=== PATIENT | female | born 1935 | race Caucasian/White ===

== ENCOUNTER 2017-12-01 10:19 | Inpatient (IN) ==
[2017-12-01] MEDS ORDERED: Metoprolol Tartrate 25 MG Tablet PO ONE (11:06)
[2017-12-01] MEDS ORDERED: Chlorhexidine Gluconate 2% 1 Pack (2 Cloths) TOPICAL ONE (11:06)
[2017-12-01] MEDS ORDERED: Mupirocin 2% Nasal Oint Topical Syringe EACH NARE SCH (11:15)
[2017-12-01] MEDS ORDERED: Sod Chloride 0.9% Inj 1,000 ML IV.CONT SCH ×2 (11:15→16:00)
[2017-12-01] MEDS ORDERED: Aspirin 325 MG Tablet PO SCH (11:15)
[2017-12-01] MEDS ORDERED: Chlorhexidine Gluconate 2% 1 Pack (2 Cloths) TOPICAL SCH (11:15)
[2017-12-01] MEDS ORDERED: ceFAZolin 2 GM Premix Inj 2 GM/50 ML PIGGYBACK IV.SIG SCH (11:15)
[2017-12-01] MEDS ORDERED: Sodium Chlor 0.9% Inj 500 ML IV.SIG SCH (12:00)
[2017-12-01] MEDS ORDERED: Heparin 10,000 UNITS/10 ML Vial (for IV use) ONE (12:32)
[2017-12-01] MEDS ORDERED: Protamine Sulfate Inj 50 MG/5 ML Vial ONE (12:32)
--- NOTE | 2017-12-01 13:01 | P.HPCA ---
History of Present Illness Service: Cardiology Primary Care Physician: Crista Brennan MD Chief Complaint: Severe aortic valve stenosis History of Present Illness: This is an 81-year-old female who follows in the outpatient office with Dr. Sarmiento and has severe aortic valve stenosis. Patient has had complaints of progressive dyspnea on exertion. Patient underwent evaluation which consisted of a cardiac catheterization by Dr. Demarco which showed mild nonobstructive coronary disease. Patient was evaluated by cardiothoracic surgery and felt to be intermediate risk for surgical aortic valve replacement. After lengthy discussion the patient has elected to proceed forward with transcatheter aortic valve replacement. Procedure was originally scheduled with Dr. Demarco, who is unavailable. I was asked to feel him to proceed forward with the scheduled elective transcatheter valve replacement today. - Diagnosis (1) Severe aortic stenosis Inpatient Certification: I certify that the inpatient services were ordered in accordance with Medicare regulations governing the order. This includes certification that hospital inpatient services are reasonable and necessary and in the case of services not specified as inpatient-only under 42 CFR 419.22(n), that they are appropriately provided as inpatient services in accordance to with the 2-midnight benchmark under 43 CFR 412.3(e) Estimated Total Length of Stay (Days): 2 Plans for Post Hospital Care: Home Review of Systems All other systems reviewed negative except as stated in HPI [facility] - History History Provided By: Patient - Medical History Medical History: Medical History (Last Updated 10/14/17 @ 12:19 by Scarlet Haney RN) Aortic stenosis Congestive heart failure Hypertension Mitral and aortic insufficiency - Tobacco History Tobacco Use In Past 30 Days: Yes (1 CIGARETTE PER DAY) Smoking Status: Current every day smoker Tobacco Type: Cigarettes - Alcohol History How Often Do You Have a Drink Containing Alcohol: 4 or more times a week Medications and Allergies Active Medications: Active Medications Aspirin (Aspirin) 325 mg PO DIGITAL COORDINATOR [facility] Stop: 12/04/17 11:02 Last Admin: 12/01/17 11:29 Dose: 325 mg Chlorhexidine Gluconate (Chlorhexidine 2% Cloth) 3 pack TOPICAL DIGITAL COORDINATOR [facility] Stop: 12/04/17 11:02 Last Admin: 12/01/17 11:29 Dose: Not Given Cefazolin Sodium/Dextrose (Ancef 2 Gm Premix Inj) 2 gm in 50 mls @ 100 mls/hr IV.SIG DIGITAL COORDINATOR [facility] Stop: 12/04/17 11:14 Sodium Chloride (Ns Inj) 1,000 mls @ 125 mls/hr IV.CONT .Q8H [facility] Lactated Ringer's (Lr 1000 Ml Inj) 1,000 mls @ 30 mls/hr IV.SIG .Q24H [facility] Stop: 12/02/17 11:14 Sodium Chloride (Ns Inj) 500 mls @ 30 mls/hr IV.SIG .Q10H [facility] Mupirocin (Bactroban 2% Nasal Oint) 1 applicatio EACH NARE DIGITAL COORDINATOR [facility] Stop: 12/04/17 11:02 Last Admin: 12/01/17 11:29 Dose: Not Given Povidone Iodine (Betadine 5% Antisepsis Kit) 1 applicatio TOPICAL DIGITAL COORDINATOR [facility] Stop: 12/04/17 11:02 Last Admin: 12/01/17 11:29 Dose: Not Given Allergies Allergy/AdvReac Type Severity Reaction Status Date / Time No Known Allergies Allergy Verified 12/01/17 11:35 Home Medications Medication Instructions Recorded Confirmed Type alendronate 70 mg PO QWEEK 10/14/17 12/01/17 History atorvastatin 80 mg PO DAILY 10/14/17 12/01/17 History furosemide 20 mg PO DAILY 10/14/17 12/01/17 History losartan 50 mg PO DAILY 10/14/17 12/01/17 History sertraline 100 mg PO DAILY 10/14/17 12/01/17 History metoprolol tartrate 25 mg PO DAILY 12/01/17 12/01/17 History Exam Vital signs: Vital Signs 12/01/17 11:31 Temperature 98.2 F Pulse Rate 75 Respiratory Rate 16 Blood Pressure 206/94 H Pulse Oximetry 97 Intake & Output 11/30/17 12/01/17 12/01/17 18:59 06:59 18:59 Weight 53.3 kg Other: Weight On Admission 53.3 kg - Constitutional no acute distress - Routine Neck Exam Absent: JVD - Routine Respiratory Exam Present: CTA bilaterally - Routine Cardiovascular Exam Present: RRR, murmur - Routine Abdominal Exam Present: soft, normoactive bowel sounds - Routine Neurological Exam Present: oriented X3, CN II-XII intact. Absent: sensory deficit, motor deficit Results Intake and Output 11/30/17 12/01/17 12/01/17 22:59 06:59 14:59 Other: Weight 53.3 kg Weight On Admission 53.3 kg Patient Weight 12/02/17 06:59 Weight 53.3 kg Caprini VTE Risk Assessment Caprini VTE Risk Assessment: No/Low Risk (score <= 1) Caprini Risk Assessment Model: Point Value = 1 Point Value = 2 Point Value = 3 Point Value = 5 Age 41-60 Minor surgery BMI > 25 kg/m2 Swollen legs Varicose veins or History of unexplained or recurrent spontaneous Oral contraceptives or hormone replacement Sepsis (< 1 month) Serious lung disease, including pneumonia (< 1 month) Abnormal pulmonary function Acute myocardial infarction Congestive heart failure (< 1 month) History of inflammatory bowel disease Medical patient at bed rest Age 61-74 Arthroscopic surgery Major open surgery (> 45 min) Laparoscopic surgery (> 45 min) Malignancy Confined to bed (> 72 hours) Immobilizing plaster cast Central venous access Age >= 75 History of VTE Family history of VTE Factor V Leiden Prothrombin [id number] Lupus anticoagulant Anticardiolipin antibodies Elevated serum homocysteine Heparin-induced thrombocytopenia Other congenital or acquired thrombophilia Stroke (< 1 month) Elective arthroplasty Hip, pelvis, or leg fracture Acute spinal cord injury (< 1 month) Prophylaxis Regimen: Total Risk Factor Score Risk Level Prophylaxis Regimen 0-1 Low Early ambulation 2 Moderate Order ONE of the following: *Sequential Compression Device (SCD) *Heparin 5000 units SQ BID 3-4 Higher Order ONE of the following medications: *Heparin 5000 units SQ TID *Enoxaparin/Lovenox 40 mg SQ daily (WT < 150 kg, CrCl > 30 mL/min) *Enoxaparin/Lovenox 30 mg SQ daily (WT < 150 kg, CrCl > 10-29 mL/min) *Enoxaparin/Lovenox 30 mg SQ BID (WT < 150 kg, CrCl > 30 mL/min) AND/OR *Sequential Compression Device (SCD) 5 or more Highest Order ONE of the following medications: *Heparin 5000 units SQ TID (Preferred with Epidurals) *Enoxaparin/Lovenox 40 mg SQ daily (WT < 150 kg, CrCl > 30 mL/min) *Enoxaparin/Lovenox 30 mg SQ daily (WT < 150 kg, CrCl > 10-29 mL/min) *Enoxaparin/Lovenox 30 mg SQ BID (WT < 150 kg, CrCl > 30 mL/min) AND *Sequential Compression Device (SCD) Assessment and Plan - Assessment (1) Severe aortic stenosis Code(s): I35.0 - Nonrheumatic aortic (valve) stenosis Status: Acute - Plan This 81-year-old female with severe symptomatic aortic valve stenosis now here for scheduled aortic valve replacement via transcatheter approach. Preoperative workup: STS score 5.4% BMI 25.1 [place] [employer] functional class III symptoms 2/4 frailty score Electrocardiogram dated October 14, 2017 shows normal sinus rhythm with left ventricular hypertrophy Pulmonary function testing from October 14, 2017 shows FEV1 of 0.86 consistent with moderate obstructive ventilatory defect. Echocardiogram September 27, 2017 shows peak jet velocity 5.19 m/s, mean gradient 62 mmHg, aortic valve area 0.44 cm, ejection fraction 55-60%, mild aortic/ mitral/tricuspid valve insufficiency Cardiac catheterization October 14, 2017 shows mild nonobstructive coronary disease Computed tomographic analysis from October 14, 2017 shows a short annulus diameter 19.6 mm, long annulus diameter 23.7 mm, annular area 371.8 mm, sinus of Valsalva 27.1 mm, sinotubular junction 24.8 mm, left coronary height 12.8 mm , right coronary height 12.8 mm, minimal luminal diameter on the right 5.9 mm, left 6.3 mm We will plan for a Decker Marine S3 23 mm bioprosthetic transcatheter aortic valve replacement. Risk benefits alternatives were discussed with the patient. patient is agreeable to proceed.
[2017-12-01] MEDS ORDERED: Iohexol 300 MG/ML 50 ML Vial (for Rad Diag) IVCONTRAST ONE ×3 (14:23→14:24)
[2017-12-01] MEDS ORDERED: Morphine Sulfate Inj 2 MG/ML Vial IV.PUSH PRN ×2 (14:31→15:28)
[2017-12-01] MEDS ORDERED: Acetaminophen 325 MG Tablet PO PRN (14:31)
--- NOTE | 2017-12-01 14:37 | P.PCN ---
Date of procedure: 12/01/17 Pre-op diagnosis: severe aortic stenosis Procedure: Procedure: Transesophageal Echocardiography Diagnosis: severe aortic stenosis Indications: perioperative planning for transcatheter aortic valve Consent: Obtained Anesthesia: General endotracheal anesthesia Description of the Procedure: The patient was sedated and mechanically ventilated. The echo probe was inserted easily and without resistance. At the conclusion of the procedure, the echo probe was removed. Please see detailed echocardiogram report for formal findings. Preliminary Findings (not confirmed): pre-procedure: 1) Grossly preserved biventricular function 2) severe aortic stenosis 3) moderate aortic regurgitation 4) moderate mitral regurgitation 5) mild tricuspid regurgitation 6) evidence of left atrial hypertension 7) no evidence of intra-atrial shunting by color flow Doppler 8) no pericardial effusion Post-procedure: 1) s/p successful placement of transcatheter aortic valve 2) no evidence of bioprosthetic valve stenosis 3) no perivalvular leak 4) no wall motion abnormalities 5) no pericardial effusion The patient tolerated the procedure well with no hemodynamic instability. There were no immediate complications noted. There was minimal EBL. I personally performed the procedure.
--- NOTE | 2017-12-01 14:48 | P.PCN ---
Date of procedure: 12/01/17 Pre-op diagnosis: Severe aortic valve stenosis Procedure: lung gun operator: Maxi Dick MD Primary Surgeon: Shonda Huang MD Procedure performed: 1. Fluoroscopy with interpretation 2. Left heart catheterization 3. Ascending aortography 4. Transesophageal echocardiogram 5. Transvenous temporary pacemaker placement 6. Transcatheter aortic valve replacement Methods: Risks, benefits, and alternatives were discussed with the patient. Patient understood and consented to the procedure. Patient was brought into the catheterization lab and placed on the catheterization table. Right groin and left groin prepped and draped in sterile fashion. Left groin was anesthetized with 2% lidocaine. Left common femoral artery was cannulated and a 5 Tongan 11 cm sheath was placed without difficulty. Left femoral vein was accessed and a 5 Tongan 11 cm sheath was placed without difficulty. Right common femoral artery was cannulated with a micropuncture wire and micropuncture sheath placed. Digital subtraction angiography confirmed intraluminal and appropriate placement. A 8 Tongan 11 cm sheath was placed followed by 2 Perclose devices in a pre-close manner. The Decker 14 Tongan sheath was then advanced with dilator to the level of the thoracic descending aorta. Left heart catheterization: A 6 Tongan AL-1 catheter was advanced to the ascending aorta 0.035 inch 260 cm straight tip Amplatz Super Stiff wire was then navigated across the aortic valve with some difficulty. The AL-1 catheter was navigated into the left ventricle and the wire removed. A 0.035 inch 260 cm standard J-wire was then advanced to the left ventricular apex and the AL-1 catheter removed. A 5 Tongan angled pigtail catheter was advanced to the left ventricular apex and the wire removed. A 0.035 inch 260 cm Confida wire was navigated to the distal left ventricular apex and the pigtail catheter removed. Transvenous temporary pacemaker placement: Access was obtained in the right internal jugular vein a 5 Tongan balloontipped temporary transvenous pacemaker was advanced to the right ventricular apex under fluoroscopic guidance. Appropriate capture and pacing was confirmed. Transesophageal echocardiogram: Please see separate report Ascending aortography: 5 Tongan angled pigtail catheter was advanced into the right coronary cusp. Angiography revealed all 3 cusps in a parallel view. Transcatheter aortic valve replacement: A 23 mm Decker Marine S3 valve was then prepped and advanced through the sheath to the level of the thoracic aorta. The balloon was pulled back into the stent. The aortic valve stent graft was then advanced over the arch and across the aortic valve with some difficulty. Appropriate placement was confirmed and the device was slowly deployed under rapid pacing. Repeat transesophageal echocardiogram confirmed appropriate placement without significant aortic insufficiency. The sheath was then re-removed and 2 Perclose devices deployed with good hemostasis. Left common femoral artery and vein were both closed with 5 Tongan Vascade devices with good hemostasis. Conclusions: 1. Successful trans-catheter aortic valve replacement with a 23 mm Decker Marine S3 bioprosthetic valve Plan: Patient will agree monitor closely for any postprocedural complications. We will initiate patient on Plavix therapy. Will consult electrophysiology for evaluation. We will obtain a limited to the echocardiogram to evaluate the valve. Dr. Demarco to follow tomorrow.
[2017-12-01] MEDS ORDERED: Clevidipine Inj 25 MG/50 ML VIAL ONE (14:53)
--- NOTE | 2017-12-01 15:01 | P.CONCC ---
History of Present Illness Service: Critical Care Medicine Consult date: 12/01/17 Requesting Physician: Eben Dick Reason for Consult: perioperative management of medical comorbidities Primary Care Provider: Crista Brennan MD Chief Complaint: Severe aortic valve stenosis History of Present Illness: This is an 81-year-old female with a history of severe aortic stenosis who presents for transcatheter aortic valve replacement. She underwent uncomplicated procedure. She arrives to the CVICU and exudative in stable condition. She is arousing from anesthesia and a complete review of systems is unobtainable. Limited review systems is negative for chest pain, shortness of breath, sore throat, nausea, vomiting, headache. Review of Systems unobtainable due to mental status (Arousing from anesthesia) PMFSH - History History Provided By: Patient - Medical History Medical History: Medical History (Last Updated 10/14/17 @ 12:19 by Scarlet Haney RN) Aortic stenosis Congestive heart failure Hypertension Mitral and aortic insufficiency - Tobacco History Tobacco Use In Past 30 Days: Yes (1 CIGARETTE PER DAY) Smoking Status: Current every day smoker Tobacco Type: Cigarettes - Alcohol History How Often Do You Have a Drink Containing Alcohol: 4 or more times a week Medications and Allergies Active Medications: Active Medications Aspirin (Aspirin) 325 mg PO FORM SETTER/DRIVER [facility] Stop: 12/04/17 11:02 Last Admin: 12/01/17 11:29 Dose: 325 mg Chlorhexidine Gluconate (Chlorhexidine 2% Cloth) 3 pack TOPICAL FORM SETTER/DRIVER [facility] Stop: 12/04/17 11:02 Last Admin: 12/01/17 11:29 Dose: Not Given Cefazolin Sodium/Dextrose (Ancef 2 Gm Premix Inj) 2 gm in 50 mls @ 100 mls/hr IV.SIG FORM SETTER/DRIVER [facility] Stop: 12/04/17 11:14 Last Infusion: 12/01/17 13:40 Dose: Infused Sodium Chloride (Ns Inj) 1,000 mls @ 125 mls/hr IV.CONT .Q8H [facility] Lactated Ringer's (Lr 1000 Ml Inj) 1,000 mls @ 30 mls/hr IV.SIG .Q24H [facility] Stop: 12/02/17 11:14 Sodium Chloride (Ns Inj) 500 mls @ 30 mls/hr IV.SIG .Q10H [facility] Iohexol (Omnipaque 300 Inj (Rad Diag)) 50 ml IVCONTRAST ONCE ONE Stop: 12/01/17 14:25 Iohexol (Omnipaque 300 Inj (Rad Diag)) 30 ml IVCONTRAST ONCE ONE Stop: 12/01/17 14:24 Mupirocin (Bactroban 2% Nasal Oint) 1 applicatio EACH NARE FORM SETTER/DRIVER [facility] Stop: 12/04/17 11:02 Last Admin: 12/01/17 11:29 Dose: Not Given Povidone Iodine (Betadine 5% Antisepsis Kit) 1 applicatio TOPICAL FORM SETTER/DRIVER [facility] Stop: 12/04/17 11:02 Last Admin: 12/01/17 11:29 Dose: Not Given Allergies Allergy/AdvReac Type Severity Reaction Status Date / Time No Known Allergies Allergy Verified 12/01/17 11:35 Home Medications Medication Instructions Recorded Confirmed Type alendronate 70 mg PO QWEEK 10/14/17 12/01/17 History atorvastatin 80 mg PO DAILY 10/14/17 12/01/17 History furosemide 20 mg PO DAILY 10/14/17 12/01/17 History losartan 50 mg PO DAILY 10/14/17 12/01/17 History sertraline 100 mg PO DAILY 10/14/17 12/01/17 History metoprolol tartrate 25 mg PO DAILY 12/01/17 12/01/17 History Physical Exam Vital signs: Vital Signs 12/01/17 11:31 Temperature 36.8 C Pulse Rate 75 Respiratory Rate 16 Blood Pressure 206/94 H Pulse Oximetry 97 Intake & Output 11/30/17 12/01/17 12/01/17 18:59 06:59 18:59 Intake Total 50 / 50 Balance 50 / 50 Weight 53.3 kg Intake: IV 50 / 50 Ancef 2 GM Premix Inj 2 gm In 50 / 50 50 ml @ 100 mls/hr IV.SIG FORM SETTER/DRIVER [facility] Rx#:[id number] Other: Weight On Admission 53.3 kg Narrative: GENERAL: Frail elderly female lying in bed, arousing from anesthesia HEENT: Normocephalic. Atraumatic. Pupils equal, round, reactive, conjugate. Mucous membranes are moist NECK: Trachea is midline. There is no JVD. right IJ introducer sheath with transvenous pacer in place, site is clean and dry, dressing intact. CHEST: unlabored. equal chest rise. nc o2. CARDIOVASCULAR: normal rate, regular rhythm. Transvenous pacer is set VVI at a backup rate of 50. not currently paced. ABDOMEN: Soft, nontender, nondistended. No guarding. MUSCULOSKELETAL: Pulses 2+. No peripheral edema. bilateral groin sites are clean and dry, no evidence of hematoma, dressing intact. distal LE pulses are Dopplerable. NEUROLOGICAL: RASS -2. Arousing from anesthesia. follows commands. moves all extremities. no focal deficits. - Urinary Catheter Management Indwelling Temp Sensing Catheter Cath placed during this visit: yes Reason for continuing: Hourly intake/output Insertion date: 12/01/17 Insertion time: 13:19 Assessment and Plan - Assessment and Plan Plan: Assessment: 81-year-old female postop day 0 status post transcatheter aortic valve replacement. Admit ICU for close monitoring. S/p TAVR today via groin access - anticoagulation per veterans services specialist - mivf - close uop monitoring - frequent neurovascular checks - frequent groin checks - OOB after flat time Hypertension - goal sbp < 180 - add back antihypertensives as needed - currently on low-dose clevidipine. Congestive Heart Failure secondary to valvulopathy - mivf today - may need diuresis beginning after POD 1 Hyperlipidemia - restart home statin advance diet after flat time SCDs AM CBC, BMP Critical care medicine will continue to follow while patient remains in the CVICU.
[2017-12-01] MEDS ORDERED: Iohexol 350 MG/ML 100 ML Vial (for Cath Lab) IVCONTRAST ONE (15:07)
[2017-12-01] MEDS ORDERED: fentaNYL Citrate Inj 100 MCG/2 ML Ampul ONE (15:10)
--- NOTE | 2017-12-01 15:11 | P.OP ---
- Preoperative Diagnosis (1) Diastolic heart failure (2) Severe aortic stenosis Postoperative Diagnosis: same Date of procedure: 12/01/17 Procedure: Transcatheter aortic valve replacement with a 23 Marine 3 tissue valve Percutaneous bilateral femoral artery access with Perclose closure on the right. Percutaneous left femoral venous access Aortography Fluoroscopy Implants: 23 Marine 3 tissue valve Anesthesia: GETA Surgeon: Shonda Huang MD Co-surgeon - Minor Pathology: none sent Operation and Findings: The risks, benefits, complications, treatment options, and expected outcomes were discussed with the patient. The possibilities of reaction to medication, pulmonary aspiration, perforation of viscus, bleeding, recurrent infection, the need for additional procedures, failure to diagnose a condition, and creating a complication requiring transfusion or operation were discussed with the patient. The patient concurred with the proposed plan, giving informed consent. The site of surgery properly noted/marked. The patient was taken to hybrid operating room, identified as Beckie Anthony and the procedure verified as Transcatheter Aortic Valve Replacement. A Time Out was held and the above information confirmed. Standard monitoring lines and Valentin catheter were placed. General anesthesia was induced. The patient was prepped and draped in a sterile fashion. Initially, left femoral arterial and venous access was acquired using a Seldinger percutaneous technique. The details of this procedure were dictated under separate note by cardiology. Once a pigtail was positioned in the aortic annulus and a temporary transvenous pacemaker wire was placed in the right ventricular apex and tested, the right femoral artery was accessed using a needle followed by a guidewire under fluoroscopic guidance. The patient was heparinized and 2 Perclose devices deployed for later closure. Serial dilators were used to dilate the right femoral artery to 14 Pakistani caliber. The Decker sheath was then inserted up to the distal abdominal aorta. Arch aortography was performed to define the implant view. The valve was crossed in the usual manner. A 23 Decker Marine 3 transcatheter aortic valve was then positioned in the annulus and deployed with the patient being paced at 180 beats per minute. Following deployment, the valve apparatus was withdrawn and arch aortography and VANI were performed to assess the valve. The valve had no significant perivalvular leaks. Gradients were then measured and the sheath was removed. Perclose sutures were secured with good hemostasis. Protamine was administered. Sterile dressings were placed. At the end of the operation, all sponge, instruments, and needle counts were correct. The patient was transferred to the CVICU in stable condition. Findings: 23 S3 valve deployed with no PVL. Complications: none
[2017-12-01] MEDS ORDERED: Clevidipine Inj 25 MG/50 ML VIAL IV.CONT PRN (15:12)
--- NOTE | 2017-12-01 15:40 | ECG ---
Date Performed: 12/01/2017 Time Performed: 10:55:04 PTAGE: 81 years EKG: Sinus rhythm . Lateral ST-T changes are nonspecific Borderline ECG No significant change from prior electrocardiog roberto. PREVIOUS TRACING : 10/14/2017 11.30 DOCTOR: Magdiel Mayer Interpretating Date/Time 12/01/2017 15:39:29
--- NOTE | 2017-12-01 16:08 | ECHRPT ---
Indication: CONCLUSIONS Normal left ventricular size. Mild concentric left ventricular hypertrophy. The left ventricular systolic function is normal with an estimated ejection fraction in the range of 60-65%. The left atrial size is mildly dilated. Mild thickening of the mitral valve leaflets. Mild mitral valve regurgitation. Trileaflet aortic valve. Aortic valve sclerosis is present. Diffuse calcification of the aortic valve. Mild aortic valve regurgitation. Severe aortic valve stenosis. james-operative transcatheter aortic valve replacement. Mild thickening of the tricuspid valve leaflets. There is mild tricuspid valve regurgitation. BP: / HR: Rhythm: MEASUREMENTS (Male / Female) Normal Values Technical Quality: 2D ECHO LVOT Diameter 1.6 cm DOPPLER AV Peak Velocity 354.0 cm/s AI Pressure Half Time 350.0 ms AV Peak Gradient 50.1 mmHg LVOT Peak Velocity 103.6 cm/s AV Mean Gradient 36.5 mmHg LVOT Peak Gradient 4.3 mmHg AV Velocity Time Integral 96.7 cm LVOT Velocity Time Integr 27.5 cm AI Peak Velocity 210.0 cm/s AV Area Cont Eq vti 0.6 cm AI Peak Gradient 17.6 mmHg AV Area Cont Eq pk 0.6 cm Medications Complications Proc. Components FINDINGS LEFT VENTRICLE Normal left ventricular size. Mild concentric left ventricular hypertrophy. The left ventricular systolic function is normal with an estimated ejection fraction in the range of 60-65%. RIGHT VENTRICLE Normal right ventricular size and systolic function. LEFT ATRIUM The left atrial size is mildly dilated. RIGHT ATRIUM The right atrial size is normal. ATRIAL APPENDAGES Normal left atrial appendage size with no evidence of thrombus formation. ATRIAL SEPTUM Normal atrial septal thickness without atrial level shunting by limited color doppler interrogation. AORTA The aortic root and proximal ascending aorta are normal in size on limited imaging. MITRAL VALVE Mild thickening of the mitral valve leaflets. Mild mitral valve regurgitation. AORTIC VALVE Trileaflet aortic valve. Aortic valve sclerosis is present. Diffuse calcification of the aortic valve. Mild aortic valve regurgitation. Severe aortic valve stenosis. james-operative transcatheter aortic valve replacement TRICUSPID VALVE Mild thickening of the tricuspid valve leaflets. There is mild tricuspid valve regurgitation. VESSELS The inferior vena cava is normal in size. PULMONARY VALVE The pulmonary valve is not well visualized. PERICADIUM No pericardial effusion. Eben Dick MD, FACC (Electronically Signed) Final Date:01 December 2017 16:07
[2017-12-01] MEDS ORDERED: Magnesium Sulfate Inj 4 GM in Sodium Chlor 0.9% Inj 92 ML IV.SIG PRN (17:22)
[2017-12-01] MEDS ORDERED: Potassium Phosphate Inj 30 MMOL in Sodium Chlor 0.9% Inj 250 ML IV.SIG PRN (17:22)
[2017-12-01] MEDS ORDERED: Potassium Chlor 40 mEq Premix 40 MEQ/100 ML PIGGYBACK IV.SIG PRN ×2 (17:22)
[2017-12-01] MEDS ORDERED: Potassium Phosphate 500 MG Soluble Tablet PO PRN ×2 (17:22)
[2017-12-01] MEDS ORDERED: Magnesium Sulfate Inj 2 GM in Sodium Chlor 0.9% Inj 96 ML IV.SIG PRN (17:22)
[2017-12-01] MEDS ORDERED: Potassium Chloride 25 MEQ Effervescent Tablet PO PRN (17:22)
[2017-12-01] MEDS ORDERED: Magnesium Oxide 400 MG Tablet PO PRN (17:22)
[2017-12-01] MEDS ORDERED: Sodium Phosphate Inj 30 MMOL in Sodium Chlor 0.9% Inj 250 ML IV.SIG PRN (17:22)
[2017-12-02 05:51] LABS: Baso # (Auto) 0.1 th/mm3 (0.0-0.2); Baso % (Auto) 0.8 % (0.0-2.0); Eos # (Auto) 0.1 th/mm3 (0.0-0.4); Eos % (Auto) 0.7 % (0.0-4.0); Hematocrit 28.9 % (35.0-46.0); Hemoglobin 9.9 gm/dL (11.6-15.3); Lymph # (Auto) 0.9 th/mm3 (1.0-4.8); Lymph % (Auto) 11.4 % (9.0-44.0); Mean Corpuscular HGB Conc 34.1 % (32.0-36.0); Mean Corpuscular Hemoglobin 30.9 pg (27.0-34.0); Mean Corpuscular Volume 90.7 fL (80.0-100.0); Mean Platelet Volume 8.6 fL (7.0-11.0); Mono # (Auto) 0.6 th/mm3 (0.0-0.9); Mono % (Auto) 7.8 % (0.0-8.0); Neut % (Auto) 79.3 % (16.0-70.0); Platelet Count 107 th/mm3 (150-450); Red Blood Count 3.18 mil/mm3 (4.00-5.30); Red Cell Distribution Width 14.5 % (11.6-17.2); White Blood Count 7.6 th/mm3 (4.0-11.0)
[2017-12-02 06:00] LABS: Prothrombin Time 10.4 sec (9.8-11.6)
[2017-12-02 06:22] LABS: Albumin 3.3 g/dL (3.4-5.0); Anion Gap 10 meq/L (5-15); Aspartate Aminotransferase 24 U/L (15-37); Blood Urea Nitrogen 6 mg/dL (7-18); Calcium 7.7 mg/dL (8.5-10.1); Chloride 103 meq/L (98-107); Glomerular Filtration Rate Greater Than 89 mL/min (>89); Glucose,Random 126 mg/dL (74-106); Sodium 138 meq/L (136-145)
[2017-12-02 06:23] LABS: Alanine Aminotransferase 13 U/L (10-53)
[2017-12-02 06:26] LABS: Alkaline Phosphatase 53 U/L (45-117)
--- NOTE | 2017-12-02 06:37 | P.PNCC ---
Subjective Subjective Remarks/Hospital Course: Hospital Course: This is an 81-year-old female with a history of severe aortic stenosis who presents for transcatheter aortic valve replacement. She underwent uncomplicated procedure. She arrives to the CVICU and exudative in stable condition. She is arousing from anesthesia and a complete review of systems is unobtainable. Limited review systems is negative for chest pain, shortness of breath, sore throat, nausea, vomiting, headache. Subjective: 12/02: clinically doing well. OOB in chair this AM. was on clevidipine overnight , but now off. hgb stable. denies complaints. ROS negative. Objective Vital Signs / I&O: Vital Signs 12/01/17 11:31 12/01/17 16:26 12/01/17 16:28 Temperature 36.8 C 36.6 C Pulse Rate 75 64 70 Respiratory Rate 16 14 Blood Pressure 206/94 H 154/58 H Pulse Oximetry 97 12/01/17 19:30 12/01/17 20:00 12/02/17 00:00 Temperature 36.8 C 36.9 C Pulse Rate 64 63 72 Respiratory Rate 18 18 Blood Pressure 154/65 H 142/73 H Pulse Oximetry 12/02/17 03:00 Temperature 36.8 C Pulse Rate 81 Respiratory Rate 18 Blood Pressure 158/52 H Pulse Oximetry Intake & Output 12/01/17 12/01/17 12/02/17 06:59 18:59 06:59 Intake Total 2424 / 2424 1138 / 1138 Output Total 850 / 850 925 / 925 Balance 1574 / 1574 213 / 213 Weight 53.3 kg 59 kg Intake: IV 584 / 584 658 / 658 Cleviprex Inj 25 mg In 50 ml @ 4 / 4 0 mls/hr .ROUTE .[facility] Rx #:[id number] NS Inj 1,000 ML @ 125 mls/hr IV 500 / 500 658 / 658 .CONT .Q8H [facility] Rx#:[id number] NS Inj 500 ML @ 30 mls/hr IV. 30 / 30 SIG .Q10H [facility] Rx#:[id number] Ancef 2 GM Premix Inj 2 gm In 50 / 50 50 ml @ 100 mls/hr IV.SIG PACKAGE DELIVERY RO[employer] SERVICE [employer]NER [facility] Rx#:[id number] Oral 240 / 240 480 / 480 Anesthesia Amount 1600 / 1600 Output: Urine 775 / 775 Estimated Blood Loss 20 / 20 Urine Amount (Catheter) 830 / 830 150 / 150 Indwelling Temp Sensing 830 / 830 150 / 150 Catheter Other: # Voids 4 # Bowel Movements 0 Weight On Admission 53.3 kg Result Diagrams: 12/02/17 05:20 12/02/17 05:20 Objective Remarks: GENERAL: Frail elderly female sitting in chair, no acute distress HEENT: Normocephalic. Atraumatic. Pupils equal, round, reactive, conjugate. Mucous membranes are moist NECK: Trachea is midline. There is no JVD. right IJ introducer sheath with transvenous pacer in place, site is clean and dry, dressing intact. CHEST: unlabored. equal chest rise. nc o2. CARDIOVASCULAR: normal rate, regular rhythm. Transvenous pacer is set VVI at a backup rate of 50. not currently paced. ABDOMEN: Soft, nontender, nondistended. No guarding. MUSCULOSKELETAL: Pulses 2+. No peripheral edema. bilateral groin sites are clean and dry, no evidence of hematoma, dressing intact. distal LE pulses are Dopplerable. NEUROLOGICAL: RASS 0. sitting in chair. follows commands. no focal deficits. Assessment and Plan - Assessment and Plan Plan: Assessment: 81-year-old female postop day 1 status post transcatheter aortic valve replacement. clinically stable. ok to transfer out of ICU. d/c art line, central line, pacer. ambulate. S/p TAVR 12/01 via groin access - anticoagulation per door opener - d/c mivf - strict i/o's - OOB with assist Hypertension - goal sbp < 180 - home lopressor and ARB. - off clevidipine - d/c art line. Congestive Heart Failure secondary to valvulopathy - d/c mivf - restart home PO lasix 20mg daily. Hyperlipidemia - home statin cardiac diet as tolerated SCDs Critical care medicine will sign off. please re-consult as needed.
--- NOTE | 2017-12-02 07:20 | MB ---
cc: Jena Pittman MD DATE: 12/01/2017 REASON FOR CONSULT: Electrocardiographic changes. HISTORY OF PRESENT ILLNESS: Mrs. Anthony is an 81-year-old female with history of aortic valve stenosis with history of congestive heart failure, high blood pressure, severe aortic stenosis, who underwent today transaortic valve replacement. During procedure, there were electrocardiographic changes. I was consulted for evaluation and management. The chart was reviewed. The patient was evaluated. ALLERGIES: None. SOCIAL HISTORY: Negative for smoking and drinking. FAMILY HISTORY: Noncontributory to her current medical condition. MEDICATIONS: She was on aspirin. She was on Ancef, Plavix 75 mg a day. She already received 600 mg a day. She is on ferrous sulfate. She is on Lasix. Lopressor p.r.n. REVIEW OF SYSTEMS: The patient referred no chest pain, no chest discomfort, no palpitation. No vomiting. No fever. PHYSICAL EXAMINATION: GENERAL: Alert, fully oriented. VITAL SIGNS: Blood pressure currently is 102/47, pulse 72, blood pressure was high this morning. Respiratory rate 18. LUNGS: Ventilated. CARDIOVASCULAR: S1, S2. No gallop. No murmur. Neck with right jugular area central line. ABDOMEN: Soft. No mass. EXTREMITIES: No edema. Electrocardiogram in hospitalization shows sinus rhythm, diffuse ST changes. New electrocardiogram post-procedure shows sinus rhythm, some intraventricular conduction delay. LABORATORY DATA: Hemoglobin 12.3, white blood cell 6.7, INR 1.0. Potassium is 3.7, creatinine 0.70. ASSESSMENT AND RECOMMENDATION: Mrs. Anthony has apparently some intraventricular conduction delay. VA interval is okay. No left bundle branch block. At this point, my recommendation is observation. If there is any missed beat or there is any change in the electrocardiogram in the morning, then further decision will be taken. We will continue on current management. I will be available on a p.r.n. basis. MD NITA Ken/jordy , 04:08 PM , 04:17 PM
[2017-12-02] MEDS: Potassium Chlor 20 mEq Premix 20 MEQ/100 ML PIGGYBACK IV.SIG PRN ×4 (07:30→13:36)
[2017-12-02] MEDS ORDERED: Furosemide 20 MG Tablet PO SCH (09:00)
[2017-12-02] MEDS ORDERED: Metoprolol Tartrate 25 MG Tablet PO SCH (09:00)
[2017-12-02] MEDS ORDERED: Ferrous Sulfate 325 MG Tablet PO SCH (09:00)
[2017-12-02] MEDS ORDERED: Sertraline 100 MG Tablet PO SCH (09:00)
--- NOTE | 2017-12-02 09:59 | P.PNCV ---
- Note Subjective/Hospital Course: 81-year-old female with history of aortic valve stenosis with history of congestive heart failure, high blood pressure, severe aortic stenosis , electively admitted for surgery 12/01 Date of procedure: 12/01/17 Procedure: Transcatheter aortic valve replacement with a 23 Marine 3 tissue valve Percutaneous bilateral femoral artery access with Perclose closure on the right. Percutaneous left femoral venous access Aortography Fluoroscopy Implants: 23 Marine 3 tissue valve 12/02 pt had some intraventricular conduction delay on ECG, no LBBB seen by Dr Pittman pt c/o general discomfort, no nausea was on cleviprex last pm , now off Objective: Vital Signs - 24 hr 12/01/17 11:31 12/01/17 16:26 12/01/17 16:28 Temperature 98.2 F 97.8 F Pulse Rate 75 64 70 Respiratory Rate 16 14 Blood Pressure 206/94 H 154/58 H Pulse Oximetry 97 12/01/17 19:30 12/01/17 20:00 12/02/17 00:00 Temperature 98.2 F 98.5 F Pulse Rate 64 63 72 Respiratory Rate 18 18 Blood Pressure 154/65 H 142/73 H Pulse Oximetry 12/02/17 03:00 12/02/17 08:00 Temperature 98.3 F 98.4 F Pulse Rate 81 77 Respiratory Rate 18 15 Blood Pressure 158/52 H 136/65 Pulse Oximetry 99 GENERAL: A&O x 3 SKIN: Warm and dry. dressing in place to both groin, some ecchymosis left groin HEAD: Normocephalic. EYES: No scleral icterus. No injection or drainage. NECK: Supple, trachea midline. No JVD or lymphadenopathy. CARDIOVASCULAR: Regular rate and rhythm without murmurs, gallops, or rubs. Right IJ temp pacer in place, right radial rosario in place RESPIRATORY: Breath sounds equal bilaterally. No accessory muscle use. GASTROINTESTINAL: Abdomen soft, non-tender, nondistended. MUSCULOSKELETAL: No cyanosis, or edema. BACK: Nontender without obvious deformity. No CVA tenderness. Labs: Laboratory Results - last 12 hr 12/01/17 12/02/17 12/02/17 11:05 05:20 05:20 WBC 7.6 RBC 3.18 L Hgb 9.9 L Hct 28.9 L MCV 90.7 MCH 30.9 MCHC 34.1 RDW 14.5 Plt Count 107 L MPV 8.6 Neut % (Auto) 79.3 H Lymph % (Auto) 11.4 [place] % (Auto) 7.8 Eos % (Auto) 0.7 Baso % (Auto) 0.8 Neut # (Auto) 6.0 Lymph # (Auto) 0.9 L [place] # (Auto) 0.6 Eos # (Auto) 0.1 Baso # (Auto) 0.1 WBC Differential . Differential Comment Auto diff final PT 10.4 INR 1.0 APTT 34.0 H Sodium Potassium Chloride Carbon Dioxide Anion Gap BUN Creatinine Estimated GFR Random Glucose Calcium Total Bilirubin AST ALT Alkaline Phosphatase Total Protein Albumin MTS Gel Crossmatch See Detail 12/02/17 05:20 WBC RBC Hgb Hct MCV MCH MCHC RDW Plt Count MPV Neut % (Auto) Lymph % (Auto) [place] % (Auto) Eos % (Auto) Baso % (Auto) Neut # (Auto) Lymph # (Auto) [place] # (Auto) Eos # (Auto) Baso # (Auto) WBC Differential Differential Comment PT INR APTT Sodium 138 Potassium 3.0 L Chloride 103 Carbon Dioxide 25.0 Anion Gap 10 BUN 6 L Creatinine 0.45 L Estimated GFR Greater than 89 Random Glucose 126 H Calcium 7.7 L Total Bilirubin 0.7 AST 24 ALT 13 Alkaline Phosphatase 53 Total Protein 6.0 L Albumin 3.3 L MTS Gel Crossmatch Result Diagrams: 12/02/17 05:20 12/02/17 05:20 Telemetry: NSR - Plan (1) S/P TAVR (transcatheter aortic valve replacement) Plan: off cleviprex on ASA, statin plavix stable from CVS standpoint, will defer further orders to Cardiology will see prn
--- NOTE | 2017-12-02 12:42 | ECHRPT ---
Indication: HEART FAILURE POST TAVR CONCLUSIONS Normal left ventricular size. Mild concentric left ventricular hypertrophy. The left ventricular systolic function is normal with an estimated ejection fraction in the range of 60-65% The aortic valve bioprosthesis is normal to two-dimensional, color flow and Doppler interrogation. T here is trace perivalvular aortic regurgitatiaon. Mean gradient 15 mmhg. Mean gradient 15 mmhg.There is trace tricuspid valve regurgitation. The estimated pulmonary arterial pressure is 40 mmHg. BP: / HR: Rhythm: MEASUREMENTS (Male / Female) Normal Values Technical Quality: 2D ECHO LV Diastolic Diameter PLAX 4.6 cm 4.2 - 5.9 / 3.9 - 5.3 cm LV Systolic Diameter PLAX 2.9 cm IVS Diastolic Thickness 1.4 cm 0.6 - 1.0 / 0.6 - 0.9 cm LVPW Diastolic Thickness 1.4 cm 0.6 - 1.0 / 0.6 - 0.9 cm LV Relative Wall Thickness 0.6 RV Internal Dim ED PLAX 2.3 cm LVOT Diameter 1.7 cm DOPPLER AV Peak Velocity 287.0 cm/s AV Peak Gradient 32.9 mmHg AV Mean Gradient 15.0 mmHg AV Velocity Time Integral 48.9 cm AI Peak Velocity 309.7 cm/s AI Peak Gradient 38.4 mmHg AI Pressure Half Time 443.3 ms LVOT Peak Velocity 97.5 cm/s LVOT Peak Gradient 3.8 mmHg LVOT Velocity Time Integral 21.3 cm AV Area Cont Eq vti 1.0 cm AV Area Cont Eq pk 0.8 cm Mitral E Point Velocity 56.8 cm/s Mitral A Point Velocity 101.0 cm/s Mitral E to A Ratio 0.6 TR Peak Velocity 273.0 cm/s TR Peak Gradient 29.8 mmHg Right Atrial Pressure 10.0 mmHg Pulmonary Artery Systolic Pressu 39.8 mmHg Right Ventricular Systolic Press 39.8 mmHg PV Peak Velocity 113.0 cm/s PV Peak Gradient 5.1 mmHg FINDINGS LEFT VENTRICLE Normal left ventricular size. Mild concentric left ventricular hypertrophy. The left ventricular systolic function is normal with an estimated ejection fraction in the range of 60-65%. No regional wall motion abnormalities are present. RIGHT VENTRICLE Normal right ventricular size and systolic function. LEFT ATRIUM The left atrial size is normal. RIGHT ATRIUM The right atrial size is normal. ATRIAL SEPTUM Normal atrial septal thickness without atrial level shunting by limited color doppler interrogation. AORTA The aortic root and proximal ascending aorta are normal in size on limited imaging. MITRAL VALVE Structurally normal mitral valve. No mitral valve stenosis or regurgitation. AORTIC VALVE The aortic valve bioprosthesis is normal to two-dimensional, color flow and Doppler interrogation. T here is trace perivalvular aortic regurgitatiaon. Mean gradient 15 mmhg. TRICUSPID VALVE There is trace tricuspid valve regurgitation. The estimated pulmonary arterial pressure is 40 mmHg. PULMONARY VALVE No pulmonary valve regurgitation or stenosis. VESSELS The inferior vena cava is normal in size. PERICARDIUM No pericardial effusion. Gregory Hong (Electronically Signed) Final Date:02 December 2017 12:41
[2017-12-02 13:10] VITALS: RESP 18
--- NOTE | 2017-12-02 13:18 | ECG ---
Date Performed: 12/02/2017 Time Performed: 04:10:30 PTAGE: 81 years EKG: Sinus rhythm with PVC(s) Possible left ventricular hypertrophy Extensive ST-T changes may be due to hypertrophy a nd/or ischemia R waves are now noted in V2 and V3 Clinical correlation is recommended Abnormal ECG PREVIOUS TRACING : 12/01/2017 15.46 DOCTOR: Joel Umana Interpretating Date/Time 12/02/2017 13:17:35
--- NOTE | 2017-12-02 13:18 | ECG ---
Date Performed: 12/01/2017 Time Performed: 15:46:32 PTAGE: 81 years EKG: Sinus rhythm Prolonged QT interval Leftward axis Possible septal infarct - age undetermined Left ventricular hype rtrophy Lateral ST-T changes are probably due to ventricular hypertrophy septal infarc is new since p rior tracing Clinical correlation is recommended Abnormal ECG PREVIOUS TRACING : 12/01/2017 10.55 DOCTOR: Joel Umana Interpretating Date/Time 12/02/2017 13:16:58
[2017-12-02 16:18] VITALS: BP 147/67; TEMP 98.5; O2SAT 97
--- NOTE | 2017-12-02 17:06 | P.DS ---
Date of admission: 12/01/17 10:19 Primary care physician: Crista Brennan MD Brief History from admission: This is an 81-year-old female who follows in the outpatient office with Dr. Akers and has severe aortic valve stenosis. Patient has had complaints of progressive dyspnea on exertion. Patient underwent evaluation which consisted of a cardiac catheterization by Dr. Demarco which showed mild nonobstructive coronary disease. Patient was evaluated by cardiothoracic surgery and felt to be intermediate risk for surgical aortic valve replacement. After lengthy discussion the patient has elected to proceed forward with transcatheter aortic valve replacement. Procedure was originally scheduled with Dr. Demarco, who is unavailable. I was asked to feel him to proceed forward with the scheduled elective transcatheter valve replacement today. Patient update on day of discharge: Doing well no postprocedural complications DS: Diagnosis - Discharge Diagnosis (1) Severe aortic stenosis Status: Acute (2) Acute on chronic diastolic (congestive) heart failure Status: Acute DS: Medications - Discharge Medications Prescriptions: aspirin 81 mg PO DAILY #30 tab clopidogrel [Plavix] 75 mg PO DAILY #30 tab DS: Summary Hospital Course: Patient underwent transcatheter aortic valve replacement. Postoperative course was unremarkable. Patient was evaluated by electrophysiology and felt not to need permanent pacemaker. The temporary transvenous pacemaker was removed. The right internal jugular venous sheath was removed. Patient did require potassium supplementation. Patient is otherwise doing very well. Ambulating. Patient is eager to go home today. Primary diagnosis: Severe aortic valve stenosis - TAVR Acute on chronic diastolic congestive heart failure - gentle diuresis. monitor salt and weight. - Time Spent with Patient Total time spent providing and/or coordinating discharge services: Greater than 30 minutes Exam Vital signs: Vital Signs 12/01/17 19:30 12/01/17 20:00 12/02/17 00:00 Temperature 98.2 F 98.5 F Pulse Rate 64 63 72 Respiratory Rate 18 18 Blood Pressure 154/65 H 142/73 H Pulse Oximetry 12/02/17 03:00 12/02/17 08:00 12/02/17 11:00 Temperature 98.3 F 98.4 F 98.6 F Pulse Rate 81 77 67 Respiratory Rate 18 15 18 Blood Pressure 158/52 H 136/65 147/66 H Pulse Oximetry 99 98 12/02/17 12:00 12/02/17 13:00 12/02/17 14:00 Temperature Pulse Rate 77 72 78 Respiratory Rate Blood Pressure Pulse Oximetry 12/02/17 15:00 12/02/17 16:00 Temperature 98.5 F Pulse Rate 78 80 Respiratory Rate 18 Blood Pressure 147/67 H Pulse Oximetry 97 Intake & Output 12/01/17 12/02/17 12/02/17 18:59 06:59 18:59 Intake Total 2424 / 2424 1138 / 1138 400 / 400 Output Total 850 / 850 925 / 925 Balance 1574 / 1574 213 / 213 400 / 400 Weight 53.3 kg 59 kg Intake: IV 584 / 584 658 / 658 400 / 400 Cleviprex Inj 25 mg In 50 ml @ 4 / 4 0 mls/hr .ROUTE .[facility] Rx #:[id number] NS Inj 1,000 ML @ 125 mls/hr IV 500 / 500 658 / 658 .CONT .Q8H [facility] Rx#:[id number] KCl 20 mEq Premix Inj 20 meq In 400 / 400 100 ml @ 50 mls/hr IV.SIG Q2H [facility] Rx#:[id number] NS Inj 500 ML @ 30 mls/hr IV. 30 / 30 SIG .Q10H [facility] Rx#:[id number] Ancef 2 GM Premix Inj 2 gm In 50 / 50 50 ml @ 100 mls/hr IV.SIG IGNITION SPECIALIST [facility] Rx#:[id number] Oral 240 / 240 480 / 480 Anesthesia Amount 1600 / 1600 Output: Urine 775 / 775 Estimated Blood Loss 20 / 20 Urine Amount (Catheter) 830 / 830 150 / 150 Indwelling Temp Sensing 830 / 830 150 / 150 Catheter Other: # Voids 4 Date of Last Bowel Movement 12/01/17 # Bowel Movements 0 Weight On Admission 53.3 kg - Constitutional no acute distress - Routine HEENT Exam Eye: Absent: EOMI, PERRL ENT: Present: mucous membranes moist - Routine Neck Exam Absent: JVD - Routine Abdominal Exam Present: soft, normoactive bowel sounds - Routine Extremities Exam Absent: edema - Routine Neurological Exam Absent: sensory deficit, motor deficit Results Procedures completed during hospitalization: Transcatheter aortic valve replacement Labs on day of discharge: Labs from last 24 hours 12/02/17 12/02/17 12/02/17 05:20 05:20 05:20 WBC 7.6 RBC 3.18 L Hgb 9.9 L Hct 28.9 L MCV 90.7 MCH 30.9 MCHC 34.1 RDW 14.5 Plt Count 107 L MPV 8.6 Neut % (Auto) 79.3 H Lymph % (Auto) 11.4 [place] % (Auto) 7.8 Eos % (Auto) 0.7 Baso % (Auto) 0.8 Neut # (Auto) 6.0 Lymph # (Auto) 0.9 L [place] # (Auto) 0.6 Eos # (Auto) 0.1 Baso # (Auto) 0.1 WBC Differential . Differential Comment Auto diff final PT 10.4 INR 1.0 APTT 34.0 H Sodium 138 Potassium 3.0 L Chloride 103 Carbon Dioxide 25.0 Anion Gap 10 BUN 6 L Creatinine 0.45 L Estimated GFR Greater than 89 Random Glucose 126 H Calcium 7.7 L Total Bilirubin 0.7 AST 24 ALT 13 Alkaline Phosphatase 53 Total Protein 6.0 L Albumin 3.3 L MTS Gel Crossmatch 12/01/17 11:05 WBC RBC Hgb Hct MCV MCH MCHC RDW Plt Count MPV Neut % (Auto) Lymph % (Auto) [place] % (Auto) Eos % (Auto) Baso % (Auto) Neut # (Auto) Lymph # (Auto) [place] # (Auto) Eos # (Auto) Baso # (Auto) WBC Differential Differential Comment PT INR APTT Sodium Potassium Chloride Carbon Dioxide Anion Gap BUN Creatinine Estimated GFR Random Glucose Calcium Total Bilirubin AST ALT Alkaline Phosphatase Total Protein Albumin MTS Gel Crossmatch See Detail Discharge Plan - Discharge Disposition Patient Disposition: 01 Discharge Home - Discharge Condition Condition: Good - Discharge Order Discharge Orders: Discharge Order (Routine); Ordered 12/02/17 Ordered By: Eben Dick Cardiology Clear for Discharge (Routine); Ordered 12/02/17 Ordered By: Eben Dick - Discharge Details Anticipated Discharge Date: 12/02/17 Discharge Comment: restart metoprolol after you see Dr. Akers - Physicians Team Primary Care Provider: Crista Brennan Attending Provider: Radha Demarco Other Providers: Shonda Huang MD ; Errol Jaimes MD ; Jena Pittman MD ; [employer] - Rxs /Orders / Referrals /Forms Prescriptions: New aspirin 81 mg Tablet,Chewable 81 mg PO DAILY Qty: 30 RF: 1 clopidogrel [Plavix] 75 mg Tablet 75 mg PO DAILY Qty: 30 RF: 1 Continue alendronate 70 mg Tablet 70 mg PO QWEEK atorvastatin 80 mg Tablet 80 mg PO DAILY furosemide 20 mg Tablet 20 mg PO DAILY losartan 50 mg Tablet 50 mg PO DAILY sertraline 100 mg Tablet 100 mg PO DAILY Discontinued metoprolol tartrate 25 mg Tablet 25 mg PO DAILY Referrals: Crista Brennan MD [Primary Care Provider] - See Instructions - Discharge Instructions Patient Printed Instructions: Transcatheter Aortic Valve Replacement (DC) Additional Instructions: Please call your PCP and make follow up appointment for next one to two weeks. Call Scarlet Haney RN Structural Analyst [employer] with any questions or concerns. 30 DAY ECHOCARDIOGRAM 01/03/18 2PM [facility] [phone] [address] [place] [address] 30 DAY FOLLOW UP- DR AKERS 01/10/18 4PM [facility] [phone] [address] [place] [address] 1 YEAR ECHOCARDIOGRAM 12/01/18 115PM [facility] [phone] [address] [place] [address] 1 YEAR FOLLOW UP- DR AKERS 12/09/17 930AM [facility] [phone] [place] [address]
[2017-12-02] MEDS ORDERED: Furosemide 20 MG Tablet PO ONE (17:15)
[2017-12-02 17:57] VITALS: PULSE 77
== END 2017-12-02 18:40 | disposition home or self-care (01) ==
LOC: HSDI 10:19 → HDIC 10:27 → HCVI 14:56 → HCPC 12-02 11:00
PROVIDERS: ADMIT Internal Medicine; ATTEND Internal Medicine
PROC: TAVRHYB (ICD-10-PCS; 2017-12-01 13:00)

== ENCOUNTER 2018-01-09 22:25 | Inpatient (IN) ==
[2018-01-09] MEDS ORDERED: ceFAZolin 2 GM Premix Inj 2 GM/50 ML PIGGYBACK IV.SIG ONE ×2 (22:47→22:54)
[2018-01-09] MEDS ORDERED: Diphtheria/Tetanus/Pertussis Vaccine Inj 0.5 ML Syringe IM ONE (22:47)
[2018-01-09] MEDS ORDERED: Sod Chloride 0.9% Inj 1,000 ML IV.CONT SCH (23:00)
[2018-01-09 23:19] LABS: Baso # (Auto) 0.1 th/mm3 (0.0-0.2); Baso % (Auto) 1.2 % (0.0-2.0); Eos # (Auto) 0.1 th/mm3 (0.0-0.4); Eos % (Auto) 2.8 % (0.0-4.0); Lymph # (Auto) 1.1 th/mm3 (1.0-4.8); Lymph % (Auto) 22.6 % (9.0-44.0); Mean Corpuscular HGB Conc 31.6 % (32.0-36.0); Mean Corpuscular Volume 82.3 fL (80.0-100.0); Mean Platelet Volume 7.9 fL (7.0-11.0); Mono # (Auto) 0.3 th/mm3 (0.0-0.9); Mono % (Auto) 6.1 % (0.0-8.0); Neut # (Auto) 3.1 th/mm3 (1.8-7.7); Neut % (Auto) 67.3 % (16.0-70.0); Platelet Count 200 th/mm3 (150-450); Red Blood Count 2.34 mil/mm3 (4.00-5.30); White Blood Count 4.7 th/mm3 (4.0-11.0)
--- NOTE | 2018-01-09 23:21 | XR ---
EXAM DATE: 01/09/2018 11:16 PM EST AGE/SEX: 82 years / Female INDICATIONS: Fall today with head trauma. CLINICAL DATA: This is the patient's initial encounter. Patient reports that signs and symptoms have been present for 1 day and indicates a pain score of 0/10. MEDICAL/SURGICAL HISTORY: Congestive heart failure. Hypertension. Aortic stenosis. . ORIF rig ht hip. TVR. COMPARISON: No prior exams available for comparison. FINDINGS: A single AP view of the chest demonstrates the lungs to be symmetrically aerated without evidence of mass, infiltrate or effusion. Prior aortic valve repair. The cardiomediastinal contours are unremarka ble. Osseous structures are intact. A scoliotic and degenerative thoracic spine. CONCLUSION: No acute cardiopulmonary disease. Electronically signed by: Roshan Quintero MD 01/09/2018 11:20 PM EST
[2018-01-09 23:22] LABS: Hematocrit 19.2 % (35.0-46.0); Hemoglobin 6.1 gm/dL (11.6-15.3)
--- NOTE | 2018-01-09 23:22 | XR ---
EXAM DATE: 01/09/2018 11:16 PM EST AGE/SEX: 82 years / Female INDICATIONS: Fall today with head trauma. CLINICAL DATA: This is the patient's initial encounter. Patient reports that signs and symptoms have been present for 1 day and indicates a pain score of 0/10. MEDICAL/SURGICAL HISTORY: Congestive heart failure. Hypertension. Aortic stenosis. . ORIF rig ht hip. TVR. COMPARISON: None. FINDINGS: Examination of the pelvis demonstrates no evidence of fracture or dislocation. Bony mineralization i s normal. There is no widening of the sacroiliac joints. No foreign body is identified. An intramed ullary earnestine and femoral neck screw are seen involving the right hip. 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 CONCLUSION: 1. Prior trauma of the right hip. 2. No acute abnormality. Electronically signed by: Roshan Quintero MD 01/09/2018 11:20 PM EST
--- NOTE | 2018-01-09 23:23 | ED ---
HPI General Chief complaint: Fall Stated complaint: Medical Time Seen by Provider: 01/09/18 22:57 Source: patient Mode of arrival: EMS Limitations: no limitations History of Present Illness HPI narrative: The patient is n 82 year old female who presents to the [facility] emergency department with a history of being found on the floor by her son prior to arrival. The patient was unconscious. The patient was noted to be laying on her left side and have a partly 2 cm laceration above the left eye. The patient had periorbital ecchymosis and edema developing around the left eye. The patient had slurred speech and an odor of alcohol about her. She does report that she drank to drink this evening. She is unsure how she ended up on the floor. The patient does admit to being on Plavix. The patient also recently underwent transcatheter aortic valve replacement. This was done in November 2017. The patient denies having any chest pain. She does however report having some shortness of breath with exertion. She denies having any extremity pain after the fall. She reports having a mild headache. She denies having any neck pain. The patient was brought in by ambulance services with a cervical collar in place. The patient has a bandage over her forehead for control of bleeding. On review of systems otherwise, the patient denies having any known recent fevers, cough, congestion, neck pain, abdominal pain, vomiting , diarrhea, urinary symptoms, one-sided weakness, facial droop, difficulty with word finding ability, vision changes, or vertigo Related Data Home Medications Medication Instructions Recorded Confirmed alendronate 70 mg PO QWEEK 10/14/17 01/09/18 atorvastatin 80 mg PO DAILY 10/14/17 01/09/18 furosemide 20 mg PO DAILY 10/14/17 01/09/18 losartan 50 mg PO DAILY 10/14/17 01/09/18 sertraline 100 mg PO DAILY 10/14/17 01/09/18 Previous Rx's Medication Instructions Recorded aspirin 81 mg PO DAILY #30 tab 12/02/17 clopidogrel [Plavix] 75 mg PO DAILY #30 tab 12/02/17 Allergies Allergy/AdvReac Type Severity Reaction Status Date / Time No Known Allergies Allergy Verified 12/01/17 11:35 Review of Systems ROS: all other systems reviewed are negative [facility] Medical History Medical History Congestive heart failure (Acute) Hypertension (Acute) Mitral and aortic insufficiency (Acute) Surgical History Surgical History H/O aortic valve replacement (Acute) Social History Social History Substance History: No History of Abuse Second Hand Smoke Exposure: Yes Smoking Status: Current every day smoker Tobacco Type: Cigarettes How Often Do You Have a Drink Containing Alcohol: 4 or more times a week Recent Travel in [facility] within the Last 8 Weeks: No Recent Out of Country Travel within the Last 8 Weeks: No Immunization History Tetanus Immunization: <5 Years Exam Narrative Exam Narrative: General: The patient is a well-developed well-nourished female in no acute distress. The patient is brought in with a cervical collar in place. Head and Neck exam: Head is normocephalic, with evidence of trauma to the left side of the face, a 2 cm laceration is above the left eyebrow, bleeding is controlled. The patient has periorbital ecchymosis, edema around the left eye, however she is able to open her eye. She has tenderness around the superior orbital rim. No other facial bone tenderness or increased facial bone mobility noted on palpation. Eyes: EOMI, pupils are equal round and reactive to light. Vision is intact in bilateral eyes. Nose: Midline septum with pink mucous membranes Mouth: Dentition unremarkable. Moist mucus membranes. Posterior oropharynx is not erythematous. No tonsillar hypertrophy. Uvula midline. Airway patent. Neck: The patient is immobilized in a cervical collar. No tracheal deviation. The trachea appears midline. Cardiovascular: Regular rate and rhythm without murmurs, gallops, or rubs. No pulse deficit to the extremities. Lungs: Clear to auscultation bilaterally. No wheezes, rhonchi, or rales. No chest wall tenderness to palpation. No erythema or ecchymosis noted. No crepitus , step off, or flail segment noted. Abdomen: Soft, without tenderness to palpation in all 4 quadrants of the abdomen. No guarding, rebound, or rigidity. No erythema or ecchymosis noted. Rectal exam: The patient has normal rectal tone. The patient has black stool noted. This is Hemoccult positive. Extremities: No instability or pain noted on pelvic rock. No clubbing, cyanosis , or edema. 2+ pulses in all 4 extremities. No extremity tenderness or deformity noted on palpation or passive/ active range of motion. Back:No spinous process tenderness to palpation. No stepoff or crepitus noted. No costovertebral angle tenderness to palpation. No erythema or ecchymosis. Neurologic Exam: Cranial nerves 2-12 were intact on exam. Strength is 5/5 in all 4 extremities. No sensory deficits noted. Mildly slurred speech with a odor of alcohol better. Skin Exam: No rash noted. Intact skin that is warm and dry. Procedures Laceration Laceration 1: Site: face Side (If applicable): left Size (cm): 2 Description: linear Depth: simple, single layer Pre-repair:: wound explored, irrigated extensively and deep structures intact Skin layer closed with: dermabond Course Initial Documented Vital Signs Temperature 98.2 F 01/09/18 22:27 Pulse Rate 83 01/09/18 22:27 Respiratory Rate 16 01/09/18 22:27 Blood Pressure 116/51 L 01/09/18 22:27 Pulse Oximetry 98 01/09/18 22:27 Last Documented Vital Signs Temperature 97.8 F 01/10/18 16:00 Pulse Rate 79 01/10/18 16:00 Respiratory Rate 18 01/10/18 16:00 Blood Pressure 173/75 H 01/10/18 16:00 Pulse Oximetry 93 L 01/10/18 16:00 Critical Care Time Critical Care Time: Yes Total Critical Care Time: 41 Attestation: Aggregate critical care time was 41 minutes. Time to perform other separately billable procedures was not included in the critical care time. My time did not include minutes spent treating any other patients simultaneously or on activities that did not directly contribute to the patient's treatment. The services I provided to this patient were to treat and/or prevent clinically significant deterioration that could result in: Respiratory failure, versus neurologic disability, versus hemorrhagic shock I provided critical care services requiring my management, as noted below: Chart data review, documentation time, medication orders and management, vital sign assessments/reviewing monitor data, ordering and reviewing lab tests, ordering and interpreting/reviewing x-rays and diagnostic studies, care of the patient and discussion of the patient with the admitting physicians. Medical Decision Making MDM Narrative Medical decision making narrative: During the course of the patient's emergency department visit, the patient's history, examination, and differential diagnosis were reviewed with the patient. The patient was placed on a cardiac rehabilitation specialist with oximetry and frequent blood pressure monitoring. The patient had IV access obtained and blood work sent for analysis. Diagnostic evaluation was started regarding the patient's head injury. The patient was initially provided an update to her tetanus, Ancef 2 g IV, and normal saline at 70 mL/h was started. Chito, the physician assistant front desk manager was consulted regarding wound cleansing and repair of the laceration above the left eye. The patient's diagnostic studies are remarkable for a white count of 4.7, hemoglobin 6.1 which is compared to the last hemoglobin done at this facility on December 02, 2017 which was 9.9. Platelets are 200, differential is within normal limits, PT is 10.0, PTT 23.1, fibrinogen within normal limits, chemistry is remarkable for potassium 3.2, creatinine 0.8, troponin I is less than 0.02. Urinalysis shows no acute abnormality. The patient's urine drug screen is negative, alcohol level is 264. CHEST X-RAY: No infiltrate, pneumothorax or mediastinal widening. She has no acute cardiopulmonary disease, pelvis x-ray reveals prior trauma of the right hip, no acute abnormality. CT scan of the brain shows a left periorbital soft tissue swelling, no acute intracranial abnormality, CT scan of the cervical spine reveals no acute fracture or dislocation, diffuse degenerative changes, carotid artery atherosclerotic calcifications. CT scan of the chest reveals no acute intrathoracic abnormality , chronic mild interstitial fibrotic change, coronary artery atherosclerotic calcifications. CT scan of the abdomen and pelvis shows no acute abnormality. Rectal examination was done which revealed Hemoccult positive stools as a source for the patient's anemia which is likely the cause of the patient's shortness of breath. On further questioning the patient reports that her stools have been darker in appearance over the last week. The patient was typed and crossmatched for 4 units of packed red blood cells, 2 units will be administered as soon as it is available. The patient's case including history, pertinent physical examination findings, and laboratory studies were discussed with Dr. Carroll. It was agreed that the patient would be admitted to the hospitalist service. The patient's results were discussed with the patient, including the plan of care. I explained that further testing and/ or monitoring is indicated based on the patient's history, examination, and/ or laboratory findings. Therefore, I recommended admission for additional evaluation. The patient expressed understanding and was agreeable with this plan. The patient was admitted to the hospital in guarded condition and sent to a bed under the care of the [facility] service. Medical Screen Exam Complete: Yes Emergency Medical Condition: Yes Differential Diagnosis Differential Diagnosis: Intracranial trauma, versus cervical spine trauma, versus intrathoracic trauma, versus intra-abdominal trauma, versus pelvis injury Medical Records Medical records reviewed: Yes I reviewed the patient's medical records. Lab Data Lab results reviewed: Yes I reviewed the patient's lab results. Result diagrams: 01/10/18 18:09 Lab Results 01/09/18 01/09/18 01/09/18 Range/Units 22:40 22:40 22:50 CBC w Diff Seed Packer WBC 4.7 (4.0-11.0) th/mm3 RBC 2.34 L (4.00-5.30) mil/mm3 Hgb 6.1 L* (11.6-15.3) gm/dL POC Hgb (Calc) (11.6-15.3) g/dL Hct 19.2 L* (35.0-46.0) % POC Hct (35-46.0) % MCV 82.3 (80.0-100.0) fL MCH 26.0 L (27.0-34.0) pg MCHC 31.6 L (32.0-36.0) % RDW 20.0 H (11.6-17.2) % Plt Count 200 (150-450) th/mm3 MPV 7.9 (7.0-11.0) fL Prelim Diff (Auto) Neut % (Auto) 67.3 (16.0-70.0) % Lymph % (Auto) 22.6 (9.0-44.0) % Pershing % (Auto) 6.1 (0.0-8.0) % Eos % (Auto) 2.8 (0.0-4.0) % Baso % (Auto) 1.2 (0.0-2.0) % Neut # (Auto) 3.1 (1.8-7.7) th/mm3 Lymph # (Auto) 1.1 (1.0-4.8) th/mm3 Pershing # (Auto) 0.3 (0.0-0.9) th/mm3 Eos # (Auto) 0.1 (0.0-0.4) th/mm3 Baso # (Auto) 0.1 (0.0-0.2) th/mm3 WBC Differential . Differential Comment Auto diff final PT (9.8-11.6) sec INR Ratio APTT (23.4-31.7) sec Fibrinogen (227-377) mg/dL POC Sodium (137-144) mmol/L POC Potassium (3.6-5.0) mmol/L POC Chloride (102-111) mmol/L POC BUN (5-21) mg/dL POC Creatinine (0.6-1.3) mg/dL POC Glucose (68-110) mg/dL Troponin I (0.02-0.05) ng/mL Urine Color Straw (Yellw/Straw) Urine Clarity Clear (Clear) Urine pH 6.0 (5.0-8.5) Ur Specific Robards 1.005 (1.002-1.035) Urine Protein Negative (Neg-Trace) mg/dL Urine Glucose (UA) Negative (Negative) mg/dL Urine Ketones Negative (Negative) mg/dL Urine Occult Blood Negative (Negative) Urine Nitrate Negative (Negative) Urine Bilirubin Negative (Negative) Urine Urobilinogen Less than 2 (Less than 2) mg/dL Ur Leukocyte Esterase Negative (Negative) Urine RBC Less than 1 (0-3) /hpf Urine WBC Less than 1 (0-5) /hpf Ur Squamous Epith Cells <1 (0-5) /hpf Hyaline Casts 1 (0-3) /lpf Urine Mucus Few H (Occasional) /lpf Micro UA Comment Culture not ind Ur Microscopic Review Not Reportable Urine Culture Comments Culture not ind Urine Opiates Screen Neg (Neg) Ur Barbiturates Screen Neg (Neg) Ur Amphetamines Screen Neg (Neg) U Benzodiazepines Scrn Neg (Neg) Urine Cocaine Screen Neg (Neg) U Cannabinoids Screen Neg (Neg) Serum Alcohol (0-5) mg/dL Blood Type Blood Type Recheck Antibody Screen MTS Gel Crossmatch 01/09/18 01/09/18 01/09/18 Range/Units 22:50 22:50 22:50 CBC w Diff WBC (4.0-11.0) th/mm3 RBC (4.00-5.30) mil/mm3 Hgb (11.6-15.3) gm/dL POC Hgb (Calc) 6.5 L* (11.6-15.3) g/dL Hct (35.0-46.0) % POC Hct 19.0 L* (35-46.0) % MCV (80.0-100.0) fL MCH (27.0-34.0) pg MCHC (32.0-36.0) % RDW (11.6-17.2) % Plt Count (150-450) th/mm3 MPV (7.0-11.0) fL Prelim Diff (Auto) Neut % (Auto) (16.0-70.0) % Lymph % (Auto) (9.0-44.0) % Pershing % (Auto) (0.0-8.0) % Eos % (Auto) (0.0-4.0) % Baso % (Auto) (0.0-2.0) % Neut # (Auto) (1.8-7.7) th/mm3 Lymph # (Auto) (1.0-4.8) th/mm3 Pershing # (Auto) (0.0-0.9) th/mm3 Eos # (Auto) (0.0-0.4) th/mm3 Baso # (Auto) (0.0-0.2) th/mm3 WBC Differential Differential Comment PT 10.0 (9.8-11.6) sec INR 1.0 Ratio APTT 23.1 L (23.4-31.7) sec Fibrinogen 255 (227-377) mg/dL POC Sodium 140 (137-144) mmol/L POC Potassium 3.2 L (3.6-5.0) mmol/L POC Chloride 106 (102-111) mmol/L POC BUN 8 (5-21) mg/dL POC Creatinine 0.8 (0.6-1.3) mg/dL POC Glucose 107 (68-110) mg/dL Troponin I Less than 0.02 L (0.02-0.05) ng/mL Urine Color (Yellw/Straw) Urine Clarity (Clear) Urine pH (5.0-8.5) Ur Specific Robards (1.002-1.035) Urine Protein (Neg-Trace) mg/dL Urine Glucose (UA) (Negative) mg/dL Urine Ketones (Negative) mg/dL Urine Occult Blood (Negative) Urine Nitrate (Negative) Urine Bilirubin (Negative) Urine Urobilinogen (Less than 2) mg/dL Ur Leukocyte Esterase (Negative) Urine RBC (0-3) /hpf Urine WBC (0-5) /hpf Ur Squamous Epith Cells (0-5) /hpf Hyaline Casts (0-3) /lpf Urine Mucus (Occasional) /lpf Micro UA Comment Ur Microscopic Review Urine Culture Comments Urine Opiates Screen (Neg) Ur Barbiturates Screen (Neg) Ur Amphetamines Screen (Neg) U Benzodiazepines Scrn (Neg) Urine Cocaine Screen (Neg) U Cannabinoids Screen (Neg) Serum Alcohol 264 H (0-5) mg/dL Blood Type B Positive Blood Type Recheck Not needed Antibody Screen Negative MTS Gel Crossmatch 01/10/18 01/10/18 01/10/18 Range/Units 00:09 10:22 10:22 CBC w Diff WBC (4.0-11.0) th/mm3 RBC (4.00-5.30) mil/mm3 Hgb 9.9 L D (11.6-15.3) gm/dL POC Hgb (Calc) (11.6-15.3) g/dL Hct 29.5 L (35.0-46.0) % POC Hct (35-46.0) % MCV (80.0-100.0) fL MCH (27.0-34.0) pg MCHC (32.0-36.0) % RDW (11.6-17.2) % Plt Count (150-450) th/mm3 MPV (7.0-11.0) fL Prelim Diff (Auto) Neut % (Auto) (16.0-70.0) % Lymph % (Auto) (9.0-44.0) % Pershing % (Auto) (0.0-8.0) % Eos % (Auto) (0.0-4.0) % Baso % (Auto) (0.0-2.0) % Neut # (Auto) (1.8-7.7) th/mm3 Lymph # (Auto) (1.0-4.8) th/mm3 Pershing # (Auto) (0.0-0.9) th/mm3 Eos # (Auto) (0.0-0.4) th/mm3 Baso # (Auto) (0.0-0.2) th/mm3 WBC Differential Differential Comment PT (9.8-11.6) sec INR Ratio APTT (23.4-31.7) sec Fibrinogen (227-377) mg/dL POC Sodium (137-144) mmol/L POC Potassium (3.6-5.0) mmol/L POC Chloride (102-111) mmol/L POC BUN (5-21) mg/dL POC Creatinine (0.6-1.3) mg/dL POC Glucose (68-110) mg/dL Troponin I Less than 0.02 L (0.02-0.05) ng/mL Urine Color (Yellw/Straw) Urine Clarity (Clear) Urine pH (5.0-8.5) Ur Specific Robards (1.002-1.035) Urine Protein (Neg-Trace) mg/dL Urine Glucose (UA) (Negative) mg/dL Urine Ketones (Negative) mg/dL Urine Occult Blood (Negative) Urine Nitrate (Negative) Urine Bilirubin (Negative) Urine Urobilinogen (Less than 2) mg/dL Ur Leukocyte Esterase (Negative) Urine RBC (0-3) /hpf Urine WBC (0-5) /hpf Ur Squamous Epith Cells (0-5) /hpf Hyaline Casts (0-3) /lpf Urine Mucus (Occasional) /lpf Micro UA Comment Ur Microscopic Review Urine Culture Comments Urine Opiates Screen (Neg) Ur Barbiturates Screen (Neg) Ur Amphetamines Screen (Neg) U Benzodiazepines Scrn (Neg) Urine Cocaine Screen (Neg) U Cannabinoids Screen (Neg) Serum Alcohol (0-5) mg/dL Blood Type Blood Type Recheck Antibody Screen MTS Gel Crossmatch See Detail 01/10/18 01/10/18 01/10/18 Range/Units 12:40 12:44 18:09 CBC w Diff WBC (4.0-11.0) th/mm3 RBC (4.00-5.30) mil/mm3 Hgb 10.4 L (11.6-15.3) gm/dL POC Hgb (Calc) (11.6-15.3) g/dL Hct 31.6 L (35.0-46.0) % POC Hct (35-46.0) % MCV (80.0-100.0) fL MCH (27.0-34.0) pg MCHC (32.0-36.0) % RDW (11.6-17.2) % Plt Count (150-450) th/mm3 MPV (7.0-11.0) fL Prelim Diff (Auto) Neut % (Auto) (16.0-70.0) % Lymph % (Auto) (9.0-44.0) % Pershing % (Auto) (0.0-8.0) % Eos % (Auto) (0.0-4.0) % Baso % (Auto) (0.0-2.0) % Neut # (Auto) (1.8-7.7) th/mm3 Lymph # (Auto) (1.0-4.8) th/mm3 Pershing # (Auto) (0.0-0.9) th/mm3 Eos # (Auto) (0.0-0.4) th/mm3 Baso # (Auto) (0.0-0.2) th/mm3 WBC Differential Differential Comment PT (9.8-11.6) sec INR Ratio APTT (23.4-31.7) sec Fibrinogen (227-377) mg/dL POC Sodium (137-144) mmol/L POC Potassium (3.6-5.0) mmol/L POC Chloride (102-111) mmol/L POC BUN (5-21) mg/dL POC Creatinine (0.6-1.3) mg/dL POC Glucose 103 (68-110) mg/dL Troponin I Less than 0.02 L (0.02-0.05) ng/mL Urine Color (Yellw/Straw) Urine Clarity (Clear) Urine pH (5.0-8.5) Ur Specific Robards (1.002-1.035) Urine Protein (Neg-Trace) mg/dL Urine Glucose (UA) (Negative) mg/dL Urine Ketones (Negative) mg/dL Urine Occult Blood (Negative) Urine Nitrate (Negative) Urine Bilirubin (Negative) Urine Urobilinogen (Less than 2) mg/dL Ur Leukocyte Esterase (Negative) Urine RBC (0-3) /hpf Urine WBC (0-5) /hpf Ur Squamous Epith Cells (0-5) /hpf Hyaline Casts (0-3) /lpf Urine Mucus (Occasional) /lpf Micro UA Comment Ur Microscopic Review Urine Culture Comments Urine Opiates Screen (Neg) Ur Barbiturates Screen (Neg) Ur Amphetamines Screen (Neg) U Benzodiazepines Scrn (Neg) Urine Cocaine Screen (Neg) U Cannabinoids Screen (Neg) Serum Alcohol (0-5) mg/dL Blood Type Blood Type Recheck Antibody Screen MTS Gel Crossmatch 01/10/18 Range/Units 19:31 CBC w Diff WBC (4.0-11.0) th/mm3 RBC (4.00-5.30) mil/mm3 Hgb (11.6-15.3) gm/dL POC Hgb (Calc) (11.6-15.3) g/dL Hct (35.0-46.0) % POC Hct (35-46.0) % MCV (80.0-100.0) fL MCH (27.0-34.0) pg MCHC (32.0-36.0) % RDW (11.6-17.2) % Plt Count (150-450) th/mm3 MPV (7.0-11.0) fL Prelim Diff (Auto) Neut % (Auto) (16.0-70.0) % Lymph % (Auto) (9.0-44.0) % Pershing % (Auto) (0.0-8.0) % Eos % (Auto) (0.0-4.0) % Baso % (Auto) (0.0-2.0) % Neut # (Auto) (1.8-7.7) th/mm3 Lymph # (Auto) (1.0-4.8) th/mm3 Pershing # (Auto) (0.0-0.9) th/mm3 Eos # (Auto) (0.0-0.4) th/mm3 Baso # (Auto) (0.0-0.2) th/mm3 WBC Differential Differential Comment PT (9.8-11.6) sec INR Ratio APTT (23.4-31.7) sec Fibrinogen (227-377) mg/dL POC Sodium (137-144) mmol/L POC Potassium (3.6-5.0) mmol/L POC Chloride (102-111) mmol/L POC BUN (5-21) mg/dL POC Creatinine (0.6-1.3) mg/dL POC Glucose 197 H (68-110) mg/dL Troponin I (0.02-0.05) ng/mL Urine Color (Yellw/Straw) Urine Clarity (Clear) Urine pH (5.0-8.5) Ur Specific Robards (1.002-1.035) Urine Protein (Neg-Trace) mg/dL Urine Glucose (UA) (Negative) mg/dL Urine Ketones (Negative) mg/dL Urine Occult Blood (Negative) Urine Nitrate (Negative) Urine Bilirubin (Negative) Urine Urobilinogen (Less than 2) mg/dL Ur Leukocyte Esterase (Negative) Urine RBC (0-3) /hpf Urine WBC (0-5) /hpf Ur Squamous Epith Cells (0-5) /hpf Hyaline Casts (0-3) /lpf Urine Mucus (Occasional) /lpf Micro UA Comment Ur Microscopic Review Urine Culture Comments Urine Opiates Screen (Neg) Ur Barbiturates Screen (Neg) Ur Amphetamines Screen (Neg) U Benzodiazepines Scrn (Neg) Urine Cocaine Screen (Neg) U Cannabinoids Screen (Neg) Serum Alcohol (0-5) mg/dL Blood Type Blood Type Recheck Antibody Screen MTS Gel Crossmatch Imaging Data Radiologist's impression: Chest X-Ray 01/09/18 22:47 CONCLUSION: No acute cardiopulmonary disease. Head CT 01/09/18 22:47 CONCLUSION: 1. Left periorbital soft tissue swelling. 2. No acute intracranial abnormality. . Pelvis X-Ray 01/09/18 22:47 CONCLUSION: 1. Prior trauma of the right hip. 2. No acute abnormality. Cervical Spine CT 01/09/18 22:48 CONCLUSION: 1. No fracture or dislocation. 2. Diffuse degenerative changes as detailed above. 3. Carotid artery atherosclerotic calcifications. Face CT 01/09/18 22:48 CONCLUSION: 1. Concern for anterior dislocation of the temporal mandibular joints bilaterally. No fracture. 2. Periorbital soft tissue swelling on the left. Abdomen/Pelvis CT 01/09/18 23:16 Bony Structures: A degenerative lumbar spine. Orthopedic hardware involving the right hip. CONCLUSION: 1. No acute abnormality. 2. Low ventral hernia and right inguinal hernia. 3. Cholelithiasis. Chest CT 01/09/18 23:16 CONCLUSION: 1. No acute intrathoracic abnormality. 2. Mild chronic interstitial fibrotic change. 3. Coronary artery atherosclerotic calcifications. Discharge Plan Discharge Disposition Patient Disposition: ED Admit(ED Internal Use Only) Discharge Order Discharge Orders: ED Use Only Admit Order (Routine); Ordered 01/10/18 Ordered By: Deb Edwards Discharge Details Diagnosis: Fall, GI bleed, Alcohol intoxication, Facial laceration Physicians Team ED Provider: Deb Edwards ED Midlevel Provider: Chito Early Primary Care Provider: UNKNOWN, Attending Provider: Phuong Jacob Other Providers: Megan Guzman ; Shawn Alston V Discharge Interventions Interventions: ED Discharge Assessment Last Done: 01/10/18 02:10 Status ED Status: Left Department Discharge Information Discharge Date/Time: 01/10/18 02:11
[2018-01-09 23:25] LABS: Amphetamine Screen,Urine Neg (Neg); Barbiturate Screen,Urine Neg (Neg); Cannabinoid Screen,Urine Neg (Neg); Cocaine Screen,Urine Neg (Neg)
[2018-01-09 23:27] LABS: Activated Partial Thrombo Time 23.1 sec (23.4-31.7)
[2018-01-09 23:27] LABS: Opiate Screen,Urine Neg (Neg)
[2018-01-09 23:29] LABS: Bilirubin,Urine Negative (Negative); Clarity,Urine Clear (Clear); Color,Urine Straw (Yellw/Straw); Glucose,Urine (UA) Negative (Negative); Hyaline Casts,Urine 1 /lpf (0-3); Leukocyte Esterase,Urine Negative (Negative); Mucus,Urine Few /lpf (Occasional); Nitrite,Urine Negative (Negative); Specific Gravity,Urine 1.005 (1.002-1.035); Squamous Epithelial Cell,Urine <1 /hpf (0-5)
[2018-01-09 23:37] LABS: Alcohol 264 mg/dL (0-5)
--- NOTE | 2018-01-09 23:42 | CT ---
EXAM DATE: 01/09/2018 11:38 PM EST AGE/SEX: 82 years / Female INDICATIONS: Trauma; fall. CLINICAL DATA: This is the patient's initial encounter. Patient reports that signs and symptoms have been present for 1 day and indicates a pain score of Nonresponsive. MEDICAL/SURGICAL HISTORY: Non-responsive. Non-responsive. RADIATION DOSE: 56.35 CTDI (mGy) COMPARISON: No prior exams available for comparison. TECHNIQUE: CT of the head without contrast. Using automated exposure control and adjustment of the mA and/or kV according to patient size, radiation dose was kept as low as reasonably achievable to ob tain optimal diagnostic quality images. DICOM format image data is available electronically for revi ew and comparison. FINDINGS: Cerebrum: Atrophy. The ventricles are normal for age. No evidence of midline shift, mass lesion, he morrhage or acute infarction. No extraaxial fluid collections are seen. Posterior Fossa: The cerebellum and brainstem are intact. The 4th ventricle is midline. The cerebe llopontine angle is unremarkable. Extracranial: Left periorbital soft tissue swelling. The visualized portion of the orbits is intact. Skull: The calvaria is intact. No evidence of skull fracture. CONCLUSION: 1. Left periorbital soft tissue swelling. 2. No acute intracranial abnormality. . Electronically signed by: Roshan Quintero MD 01/09/2018 11:41 PM EST
--- NOTE | 2018-01-09 23:46 | CT ---
EXAM DATE: 01/09/2018 11:39 PM EST AGE/SEX: 82 years / Female INDICATIONS: Trauma; fall - patient has a black eye. CLINICAL DATA: This is the patient's initial encounter. Patient reports that signs and symptoms have been present for 1 day and indicates a pain score of Nonresponsive. MEDICAL/SURGICAL HISTORY: Non-responsive. Non-responsive. RADIATION DOSE: 21.96 CTDI (mGy) COMPARISON: No prior exams available for comparison. TECHNIQUE: Contiguous images in the axial and coronal planes were obtained using helical multirow de tector technique. Using automated exposure control and adjustment of the mA and/or kV according to p atient size, radiation dose was kept as low as reasonably achievable to obtain optimal diagnostic kory lity images. DICOM format image data is available electronically for review and comparison. FINDINGS: Orbits: The orbital and infraorbital osseous structures are intact. The retroconal structures have a normal configuration. No radiopaque foreign bodies are seen. Nasal Bone: The nasal bone and maxillary spine are intact. Zygomatic Arches: Symmetric without evidence of fracture. Sinuses: The maxillary, ethmoid, and frontal sinuses are intact. No air-fluid levels seen. Nasal Cavity: The nasal septum is intact and midline. The lacrimal ducts are intact. Soft Tissues: No radiopaque foreign bodies seen. Periorbital soft tissue swelling on the left. Most pronounced within the supraorbital region.. Intracranial: No intracranial air seen. Cribriform Plate: Grossly intact. The temporomandibular joints appear displaced anteriorly. No discrete fracture observed. CONCLUSION: 1. Concern for anterior dislocation of the temporal mandibular joints bilaterally. No fracture. 2. Periorbital soft tissue swelling on the left. Electronically signed by: Roshan Quintero MD 01/09/2018 11:44 PM EST
--- NOTE | 2018-01-09 23:50 | CT ---
EXAM DATE: 01/09/2018 11:42 PM EST AGE/SEX: 82 years / Female INDICATIONS: Trauma; fall. CLINICAL DATA: This is the patient's initial encounter. Patient reports that signs and symptoms have been present for 1 day and indicates a pain score of Nonresponsive. MEDICAL/SURGICAL HISTORY: Non-responsive. Non-responsive. RADIATION DOSE: 16.15 CTDI (mGy) COMPARISON: No prior exams available for comparison. TECHNIQUE: Contiguous axial images were obtained using helical multirow detector technique. The vol umetric data was post-processed with multiplanar reconstruction in oblique axial, sagittal, and coron al planes. Using automated exposure control and adjustment of the mA and/or kV according to patient s ize, radiation dose was kept as low as reasonably achievable to obtain optimal diagnostic quality js ges. DICOM format image data is available electronically for review and comparison. FINDINGS: Vertebrae: Normal vertebral body height. Alignment: Normal. No subluxation. Carotid artery atherosclerotic calcifications. C2-3: Mild central bulge. No abutment of the cord or central canal stenosis. Bony uncovertebral hype rtrophy particularly on the left. Neural foramina remain patent.. C3-4: Tiny central bulge. No abutment of the cord or central canal stenosis. Prominent bony uncovert ebral hypertrophy more pronounced on the left. Neural foramina remain patent. C4-5: The bony spinal canal is normal in size. No evidence of disc bulge or herniation. Bony uncove rtebral hypertrophy bilaterally. Minimal narrowing of the right neural foramen. Left remains patent.. C5-6: Disc space narrowing without bulge or protrusion. Prominent bony uncovertebral hypertrophy wit h moderate narrowing of the neural foramina bilaterally.. C6-7: Disc space narrowing with a mild broad-based disc osteophyte complex. Central canal remains pa tent. Bony uncovertebral hypertrophy generates mild bilateral neural foraminal narrowing.. C7-T1: The bony spinal canal is normal in size. No evidence of disc bulge or herniation. The neura l foramina are bilaterally patent. CONCLUSION: 1. No fracture or dislocation. 2. Diffuse degenerative changes as detailed above. 3. Carotid artery atherosclerotic calcifications. Electronically signed by: Roshan Quintero MD 01/09/2018 11:48 PM EST
--- NOTE | 2018-01-09 23:53 | CT ---
EXAM DATE: 01/09/2018 11:45 PM EST AGE/SEX: 82 years / Female INDICATIONS: Trauma; fall. CLINICAL DATA: This is the patient's initial encounter. Patient reports that signs and symptoms have been present for 1 day and indicates a pain score of Nonresponsive. MEDICAL/SURGICAL HISTORY: Non-responsive. Non-responsive. ORAL CONTRAST: No oral contrast ingested. RADIATION DOSE: 5.13 CTDI (mGy) ; Combined studies COMPARISON: No prior exams available for comparison. TECHNIQUE: Multiple contiguous axial images were obtained through the abdomen and pelvis following b olus infusion of 72 ml Omnipaque 350 (iohexol) nonionic water-soluble contrast as a cumulative dose for multiple exams. No oral contrast ingested. Using automated exposure control and adjustment of t he mA and/or kV according to patient size, radiation dose was kept as low as reasonably achievable to obtain optimal diagnostic quality images. DICOM format image data is available electronically for r eview and comparison. FINDINGS: Lower Lungs: See the CT of the thorax dictated separately.. Liver: The liver has a homogeneous density without space-occupying lesion. There is no dilation of th e biliary tree. Tiny calcified gallstones layering within an otherwise normal-appearing gallbladder. Spleen: Homogeneous density without enlargement. Pancreas: Unremarkable without mass or calcification. Kidneys: Normal in size and shape. No evidence of mass or hydronephrosis. Adrenal Glands: Unremarkable. Aorta: Diffuse calcified atheromatous plaque without aneurysmal dilation. Bowel/Mesentery: The bowel loops are grossly unremarkable. The cecum and sigmoid colon have a normal configuration. Abdominal Wall: Low ventral hernia containing loops of small bowel. Retroperitoneum: No evidence of adenopathy in the retrocrural, para-aortic, or deep pelvic regions. Bladder: Contours are smooth. Reproductive Organs: No abnormal masses or calcifications seen. Inguinal: Right inguinal hernia containing a loop of small bowel. The inguinal region is unremarkabl e without evidence of adenopathy. Bony Structures: A degenerative lumbar spine. Orthopedic hardware involving the right hip. CONCLUSION : 1. No acute abnormality. 2. Low ventral hernia and right inguinal hernia. 3. Cholelithiasis. Electronically signed by: Roshan Quintero MD 01/09/2018 11:51 PM EST
--- NOTE | 2018-01-09 23:56 | CT ---
EXAM DATE: 01/09/2018 11:43 PM EST AGE/SEX: 82 years / Female INDICATIONS: Trauma; fall. CLINICAL DATA: This is the patient's initial encounter. Patient reports that signs and symptoms have been present for 1 day and indicates a pain score of Nonresponsive. MEDICAL/SURGICAL HISTORY: Non-responsive. Non-responsive. RADIATION DOSE: 5.13 CTDI (mGy) ; Combined studies COMPARISON: [facility] [place] CHEST TRANSAORTIC VALVE REP, 10/14/2017. . TECHNIQUE: Multiple contiguous axial images were obtained through the chest during bolus infusion of 72 ml Omnipaque 350 (iohexol) nonionic water-soluble contrast as a cumulative dose for multiple exa ms. Images were obtained in suspended respiration using multiple row detector helical technique. U sing automated exposure control and adjustment of the mA and/or kV according to patient size, radiati on dose was kept as low as reasonably achievable to obtain optimal diagnostic quality images. DICOM format image data is available electronically for review and comparison. FINDINGS: Lungs: Mild interlobular septal thickening involving the subpleural aspects of the lungs. The lungs are symmetrically aerated. No infiltrates or nodular densities are seen. Mediastinum: The heart is normal in size. Prior aortic valve repair. Coronary artery atherosclerotic calcifications. Aorta and pulmonary arteries are normal in caliber. No mass or adenopathy.. Pleurae: No evidence of focal thickening or pleural effusion. Axillae: Unremarkable. Bony Structures: A scoliotic and degenerative spine.. Miscellaneous: See the CT the abdomen and pelvis reported separately.. CONCLUSION: 1. No acute intrathoracic abnormality. 2. Mild chronic interstitial fibrotic change. 3. Coronary artery atherosclerotic calcifications. Electronically signed by: Roshan Quintero MD 01/09/2018 11:55 PM EST
[2018-01-10] MEDS ORDERED: LORazepam 1 MG Tablet PO PRN (00:30)
[2018-01-10] MEDS ORDERED: Haloperidol Inj 5 MG/ML Ampul IV.PUSH PRN (00:30)
[2018-01-10] MEDS ORDERED: Acetaminophen 325 MG Tablet PO PRN (00:31)
[2018-01-10] MEDS ORDERED: Bisacodyl 10 MG Supp RECTAL PRN (00:31)
[2018-01-10] MEDS ORDERED: Sodium Chlor 0.9% Inj 250 ML IV.SIG SCH (01:00)
[2018-01-10] MEDS ORDERED: Pantoprazole Inj 80 MG in Sodium Chlor 0.9% Inj 35 ML IV.SIG ONE (01:00)
--- NOTE | 2018-01-10 01:31 | P.HPIM ---
History of Present Illness Primary Care Physician: UNKNOWN History of Present Illness: This is an 82-year-old female with a PMH of HTN, CHF (Echo 12/02/2017 with EF 60 -65%) and h/o AV Stenosis s/p TAVR 12/01/17 who was brought to the ER by EMS after being found down by Son, +smell of alcohol. Pt has no recollection of events, but admits to drinking tonight. +facial trauma w/ ecchymosis/edema. On ASA/Plavix. On arrival, BP 116/51, HR 83, O2 sat 98% on RA, Afebrile. Hemoglobin 6.1, previously 9.9 on 12/02/2017. Hemoccult +. INR 1.0. Chemistry essentially unremarkable. Troponin negative. UA negative for UTI. Urine Drug Screen negative. Alcohol 264. CXR with no acute findings. T Head left periorbital soft tissue swelling no acute intracranial abnormalities. Pelvis X-ray prior trauma right hip no acute findings. CT C-spine no acute fracture or dislocation. CT Face possible anterior dislocation temporomandibular joints no fracture. CT Abdomen/Pelvis no acute findings. CT Chest no acute findings. 2u pRBC ordered, pending transfusion. - Diagnosis (1) Fall (2) GI bleed (3) Anemia (4) Alcohol intoxication (5) S/P TAVR (transcatheter aortic valve replacement) Inpatient Certification: I certify that the inpatient services were ordered in accordance with Medicare regulations governing the order. This includes certification that hospital inpatient services are reasonable and necessary and in the case of services not specified as inpatient-only under 42 CFR 419.22(n), that they are appropriately provided as inpatient services in accordance to with the 2-midnight benchmark under 43 CFR 412.3(e) Estimated Total Length of Stay (Days): 2 Plans for Post Hospital Care: Not yet determined Review of Systems PAST FAMILY HISTORY: Reviewed. No h/o DM or CAD All other systems reviewed negative except as stated in HPI PMFSH - History History Provided By: Marketing Specialist / EMT - Medical History Medical History: Medical History (Last Reviewed 12/02/17 @ 08:46 by Jaylen Leach) Aortic stenosis Congestive heart failure Hypertension Mitral and aortic insufficiency - Surgical History Surgical History: Surgical History (Last Updated 01/09/18 @ 23:20 by Deb Edwards MD) H/O aortic valve replacement - Tobacco History Tobacco Use In Past 30 Days: No Smoking Status: Smoker, status unknown Tobacco Type: Cigarettes - Alcohol History How Often Do You Have a Drink Containing Alcohol: 4 or more times a week - Substance Use History Substance History: No History of Abuse - Travel History Recent Travel in the [place] Within the Last 8 Weeks: No Recent Travel Out of the Country Within the Last 8 Weeks: No - Immunization History Tetanus Immunization: <5 Years Medications and Allergies Active Medications: Active Medications Acetaminophen (Tylenol) 650 mg PO Q4H PRN PRN Reason: Temp > 100.4 Al Hydroxide/Mg Hydroxide (Milk Of Magnesia Liq) 30 ml PO Q12H PRN PRN Reason: Mild Constipation Bisacodyl (Dulcolax Supp) 10 mg RECTAL DAILY PRN PRN Reason: SEVERE CONSITIPATION Flumazenil (Romazecon Inj) 0.2 mg IV.PUSH Q1M PRN PRN Reason: OVERSEDATION Folic Acid (Folic Acid) 1 mg PO DAILY [facility] Stop: 01/15/18 08:59 Haloperidol Lactate (Haldol Inj) 1 mg IV.PUSH Q15M PRN PRN Reason: for severe agitation Sodium Chloride (Ns Inj) 1,000 mls @ 70 mls/hr IV.CONT .[id number] [facility] Last Admin: 01/09/18 22:58 Dose: 70 mls/hr Sodium Chloride (Ns Inj) 250 mls @ 15 mls/hr IV.SIG ONCE [facility] Stop: 01/10/18 17:39 Pantoprazole Sodium 80 mg/ (Sodium Chloride) 100 mls @ 10 mls/hr IV.CONT Q10H [facility] Lactulose (Lactulose Liq) 30 ml PO DAILY PRN PRN Reason: SEVERE CONSITIPATION Lorazepam (Ativan) 1 mg PO Q4H PRN PRN Reason: for CIWA 8-10 Lorazepam (Ativan) 2 mg PO Q2H PRN PRN Reason: for CIWA 11-14 Lorazepam (Ativan Inj) 2 mg IV.PUSH Q2H PRN PRN Reason: for CIWA 11-14 Lorazepam (Ativan Inj) 2 mg IV.PUSH Q1H PRN PRN Reason: for CIWA 15-20 Lorazepam (Ativan Inj) 2 mg IV.PUSH Q15M PRN PRN Reason: for CIWA > 20 Lorazepam (Ativan Inj) 1 mg IV.PUSH Q4H PRN PRN Reason: for CIWA 8-10 Multivitamins/Minerals (Theragran-M) 1 tab PO DAILY [facility] Stop: 01/15/18 08:59 Ondansetron HCl (Zofran Inj) 4 mg IV.PUSH Q6H PRN PRN Reason: NAUSEA OR VOMITING Senna/Docusate Sodium (Maura-Colace) 1 tab PO BID [facility] Sennosides (Senokot) 17.2 mg PO Q12H PRN PRN Reason: Moderate Constipation Sodium Chloride (Ns Flush) 2 ml IV.FLUSH BID [facility] Sodium Chloride (Ns Flush) 2 ml IV.FLUSH PRN PRN PRN Reason: FLUSH AFTER USING IV ACCESS Thiamine HCl (Vitamin B1) 100 mg PO DAILY [facility] Allergies Allergy/AdvReac Type Severity Reaction Status Date / Time No Known Allergies Allergy Verified 12/01/17 11:35 Home Medications Medication Instructions Recorded Confirmed Type alendronate 70 mg PO QWEEK 10/14/17 01/09/18 History atorvastatin 80 mg PO DAILY 10/14/17 01/09/18 History furosemide 20 mg PO DAILY 10/14/17 01/09/18 History losartan 50 mg PO DAILY 10/14/17 01/09/18 History sertraline 100 mg PO DAILY 10/14/17 01/09/18 History Exam Vital signs: Vital Signs 01/09/18 22:27 01/10/18 01:21 Temperature 98.2 F 98.5 F Pulse Rate 83 76 Respiratory Rate 16 16 Blood Pressure 116/51 L 129/59 L Pulse Oximetry 98 96 Intake & Output 01/09/18 01/09/18 01/10/18 06:59 18:59 06:59 Intake Total 50 / 50 Balance 50 / 50 Weight 56.699 kg Intake: IV 50 / 50 Ancef 2 GM Premix Inj 2 gm In 50 / 50 50 ml @ 100 mls/hr IV.SIG ONCE ONE Rx#:[id number] Intake (Blood Product) Amt 0 / 0 Rbc As-3 Leukoreduced Unit 0 / 0 [id number] Narrative: PE: GENERAL: Elderly white female in no acute distress. SKIN: Focused skin assessment warm and dry. HEENT: PERRLA, EOMI. No scleral icterus or conjunctival pallor. No lid lag or facial droop. +facial trauma w/ ecchymosis, left eyebrow laceration w/ surrounding edema CARDIOVASCULAR: Regular rate and rhythm. No obvious murmurs to auscultation. No chest tenderness to palpation. RESPIRATORY: No obvious rhonchi or wheezing. Clear to auscultation. Breath sounds equal bilaterally. GASTROINTESTINAL: Abdomen soft, non-tender, nondistended. BS normal. MUSCULOSKELETAL: Extremities without clubbing, cyanosis, or edema. No obvious deformities. NEUROLOGICAL: Awake, alert and oriented x4. No focal neurologic deficits. Moving both upper and lower extremities spontaneously. PSYCHIATRIC: Appropriate mood and affect. Insight and judgment normal. Results - Labs CBC & Chem 7: 01/09/18 22:50 Labs: Short CBC 01/09/18 Range/Units 22:50 WBC 4.7 (4.0-11.0) th/mm3 Hgb 6.1 L* (11.6-15.3) gm/dL Hct 19.2 L* (35.0-46.0) % Plt Count 200 (150-450) th/mm3 Cardiac Enzymes 01/09/18 Range/Units 22:50 Troponin I Less than 0.02 L (0.02-0.05) ng/mL Urine 01/09/18 Range/Units 22:40 Urine Color Straw (Yellw/Straw) Urine Clarity Clear (Clear) Urine pH 6.0 (5.0-8.5) Ur Specific [place] 1.005 (1.002-1.035) Urine Protein Negative (Neg-Trace) mg/dL Urine Glucose (UA) Negative (Negative) mg/dL - Imaging Impressions Chest X-Ray 01/09/18 22:47 CONCLUSION: No acute cardiopulmonary disease. Head CT 01/09/18 22:47 CONCLUSION: 1. Left periorbital soft tissue swelling. 2. No acute intracranial abnormality. . Pelvis X-Ray 01/09/18 22:47 CONCLUSION: 1. Prior trauma of the right hip. 2. No acute abnormality. Cervical Spine CT 01/09/18 22:48 CONCLUSION: 1. No fracture or dislocation. 2. Diffuse degenerative changes as detailed above. 3. Carotid artery atherosclerotic calcifications. Face CT 01/09/18 22:48 CONCLUSION: 1. Concern for anterior dislocation of the temporal mandibular joints bilaterally. No fracture. 2. Periorbital soft tissue swelling on the left. Abdomen/Pelvis CT 01/09/18 23:16 Bony Structures: A degenerative lumbar spine. Orthopedic hardware involving the right hip. CONCLUSION: 1. No acute abnormality. 2. Low ventral hernia and right inguinal hernia. 3. Cholelithiasis. Chest CT 01/09/18 23:16 CONCLUSION: 1. No acute intrathoracic abnormality. 2. Mild chronic interstitial fibrotic change. 3. Coronary artery atherosclerotic calcifications. Caprini VTE Risk Assessment Caprini VTE Risk Assessment: No/Low Risk (score <= 1) VTE Pharmacological Exception Reason: Active bleeding Caprini Risk Assessment Model: Point Value = 1 Point Value = 2 Point Value = 3 Point Value = 5 Age 41-60 Minor surgery BMI > 25 kg/m2 Swollen legs Varicose veins or History of unexplained or recurrent spontaneous Oral contraceptives or hormone replacement Sepsis (< 1 month) Serious lung disease, including pneumonia (< 1 month) Abnormal pulmonary function Acute myocardial infarction Congestive heart failure (< 1 month) History of inflammatory bowel disease Medical patient at bed rest Age 61-74 Arthroscopic surgery Major open surgery (> 45 min) Laparoscopic surgery (> 45 min) Malignancy Confined to bed (> 72 hours) Immobilizing plaster cast Central venous access Age >= 75 History of VTE Family history of VTE Factor V Leiden Prothrombin [id number] Lupus anticoagulant Anticardiolipin antibodies Elevated serum homocysteine Heparin-induced thrombocytopenia Other congenital or acquired thrombophilia Stroke (< 1 month) Elective arthroplasty Hip, pelvis, or leg fracture Acute spinal cord injury (< 1 month) Prophylaxis Regimen: Total Risk Factor Score Risk Level Prophylaxis Regimen 0-1 Low Early ambulation 2 Moderate Order ONE of the following: *Sequential Compression Device (SCD) *Heparin 5000 units SQ BID 3-4 Higher Order ONE of the following medications: *Heparin 5000 units SQ TID *Enoxaparin/Lovenox 40 mg SQ daily (WT < 150 kg, CrCl > 30 mL/min) *Enoxaparin/Lovenox 30 mg SQ daily (WT < 150 kg, CrCl > 10-29 mL/min) *Enoxaparin/Lovenox 30 mg SQ BID (WT < 150 kg, CrCl > 30 mL/min) AND/OR *Sequential Compression Device (SCD) 5 or more Highest Order ONE of the following medications: *Heparin 5000 units SQ TID (Preferred with Epidurals) *Enoxaparin/Lovenox 40 mg SQ daily (WT < 150 kg, CrCl > 30 mL/min) *Enoxaparin/Lovenox 30 mg SQ daily (WT < 150 kg, CrCl > 10-29 mL/min) *Enoxaparin/Lovenox 30 mg SQ BID (WT < 150 kg, CrCl > 30 mL/min) AND *Sequential Compression Device (SCD) Assessment and Plan - Assessment (1) Fall Code(s): W19.XXXA - Unspecified fall, initial encounter Status: Acute (2) GI bleed Code(s): K92.2 - Gastrointestinal hemorrhage, unspecified Status: Acute (3) Anemia Code(s): D64.9 - Anemia, unspecified Status: Acute (4) Alcohol intoxication Code(s): F10.929 - Alcohol use, unspecified with intoxication, unspecified Status: Acute (5) S/P TAVR (transcatheter aortic valve replacement) Code(s): Z95.2 - Presence of prosthetic heart valve Status: Acute - Plan A/P: 1. Fall: s/p fall at home, found on floor by pt's Son, details of fall unclear , pt w/ no recollection of events, CT Head/C-Spine w/ no acute findings, CT Face w/ possible anterior dislocation temporal mandibular joints, no fracture, OMF eval as needed. CXR/Pelvis X-ray/CT Chest/Abd/Pelvis w/ no acute findings. 2. GI Bleed: Hemoccult + on exam, on ASA/Plavix per review of home medications , will hold. Start Protonix gtt, Consult GI for further eval/intervention. NPO. 3. Anemia: Critical. Secondary to above. Hgb 6.1, previously 9.9 on 12/02/17 , 2u pRBC ordered, pending transfusion, repeat Hgb/Hct after transfusions complete. Hold ASA/Plavix as above. CT Head/Chest/Abd/Pelvis w/ no acute bleeding. 4. Alcohol Intoxication: Alcohol 264, pt admits to drinking, unclear how much or how often, will start on CIWA for possible withdrawal, MVT/Thiamine/Folate replacement, Seizure Precautions. 5. H/o TAVR: 12/02/17, follows w/ Dr. Klanke as outpatient, hold ASA/Plavix as above for acute GI Bleed. 6. DVT Prophylaxis: Pharmacologic contraindication due to GI Bleed 7. Social work for d/c planning as needed. 8. Case discussed w/ ER physician at length, labs/records/imaging reviewed by me.
[2018-01-10] MEDS: Pantoprazole Inj 80 MG in Sodium Chlor 0.9% Inj 100 ML IV.CONT SCH ×2 (02:35→17:09)
[2018-01-10] MEDS: Multivitamin/Minerals Therapeutic Tablet PO SCH (09:33)
[2018-01-10] MEDS: Senna/Docusate Sodium 8.6/50 MG Tablet PO SCH ×2 (09:33→20:29)
[2018-01-10] MEDS: Folic Acid 1 MG Tablet PO SCH (09:33)
[2018-01-10 10:41] LABS: Hematocrit 29.5 % (35.0-46.0); Hemoglobin 9.9 gm/dL (11.6-15.3)
--- NOTE | 2018-01-10 12:36 | P.PNADD ---
Addendum to Inpatient Note Additional information: Patient seen/examined. Came in with Anemia due to GI bleed, fall. Patient received 2 units of PRBCs. GI consult pending. BP is elevated, we will start clonidine PRN. Will d/c Protonix drip and start patient on Protonix IV BID. Continue CIWA protocol for alcoholism.
--- NOTE | 2018-01-10 17:08 | P.CONGI ---
History of Present Illness Consult date: 01/10/18 Consult reason: GI bleed Chief complaint: GI BLEED History of Present Illness: This patient is an 82-year-old female with past medical history of hypertension , CHF, AV stenosis status post T AVR on 12/01/2017. Patient was brought to the emergency room after being found down by a family member with the smell of alcohol surrounding. Patient admits to drinking 2-3 bloody Barbara's daily along with 2-3 beers. Our service has been consulted to evaluate patient for GI bleeding. Upon arrival to emergency room, hemoglobin 6.1 hematocrit 19.2. After 2units packed RBCs, posttransfusion hemoglobin 9.9 hematocrit 29.5. INR 1.0, there has been no reported bleeding patient denies any bleeding. Of note, patient currently on Plavix and aspirin post T AVR on 12/01/2017. Patient currently on pantoprazole drip. Patient endorses 1 month onset of generalized weakness and shortness of breath. She denies any abdominal pain nausea or vomiting. States her bowel movements are regular 1-2 times daily brown with no noted bleeding. States last colonoscopy 4 years ago, polyps were found to be benign per her recollection. Patient denies ever having had an EGD in the past. Patient denies any known family history for gastrointestinal disorders. Review of Systems All other systems reviewed negative except as stated in HPI PMFSH - History History Provided By: Patient - Medical History Medical History: Medical History (Last Reviewed 12/02/17 @ 08:46 by Jaylen Leach) Aortic stenosis Congestive heart failure Hypertension Mitral and aortic insufficiency - Surgical History Surgical History: Surgical History (Last Updated 01/09/18 @ 23:20 by Deb Edwards MD) H/O aortic valve replacement - Tobacco History Second Hand Smoke Exposure: Yes Tobacco Use In Past 30 Days: Yes Smoking Status: Current every day smoker Tobacco Type: Cigarettes - Alcohol History How Often Do You Have a Drink Containing Alcohol: 4 or more times a week - Substance Use History Substance History: No History of Abuse - Travel History Recent Travel in the [place] Within the Last 8 Weeks: No Recent Travel Out of the Country Within the Last 8 Weeks: No - Immunization History Tetanus Immunization: Unsure Hx Influenza Vaccine This Season: No Medications and Allergies Active Medications: Active Medications Acetaminophen (Tylenol) 650 mg PO Q4H PRN PRN Reason: Temp > 100.4 Al Hydroxide/Mg Hydroxide (Milk Of Magnesia Liq) 30 ml PO Q12H PRN PRN Reason: Mild Constipation Bisacodyl (Dulcolax Supp) 10 mg RECTAL DAILY PRN PRN Reason: SEVERE CONSITIPATION Clonidine HCl (Catapres) 0.1 mg PO Q6H PRN PRN Reason: For systolic BP > 180 Last Admin: 01/10/18 12:41 Dose: 0.1 mg Flumazenil (Romazecon Inj) 0.2 mg IV.PUSH Q1M PRN PRN Reason: OVERSEDATION Folic Acid (Folic Acid) 1 mg PO DAILY ADAMA Stop: 01/15/18 08:59 Last Admin: 01/10/18 09:33 Dose: 1 mg Haloperidol Lactate (Haldol Inj) 1 mg IV.PUSH Q15M PRN PRN Reason: for severe agitation Sodium Chloride (Ns Inj) 250 mls @ 15 mls/hr IV.SIG ONCE ADAMA Stop: 01/10/18 17:39 Last Admin: 01/10/18 02:35 Dose: 15 mls/hr Pantoprazole Sodium 80 mg/ (Sodium Chloride) 100 mls @ 10 mls/hr IV.CONT Q10H ADAMA Last Infusion: 01/10/18 09:35 Dose: 10 mls/hr Lactulose (Lactulose Liq) 30 ml PO DAILY PRN PRN Reason: SEVERE CONSITIPATION Lorazepam (Ativan) 1 mg PO Q4H PRN PRN Reason: for CIWA 8-10 Lorazepam (Ativan) 2 mg PO Q2H PRN PRN Reason: for CIWA 11-14 Lorazepam (Ativan Inj) 2 mg IV.PUSH Q2H PRN PRN Reason: for CIWA 11-14 Lorazepam (Ativan Inj) 2 mg IV.PUSH Q1H PRN PRN Reason: for CIWA 15-20 Lorazepam (Ativan Inj) 2 mg IV.PUSH Q15M PRN PRN Reason: for CIWA > 20 Lorazepam (Ativan Inj) 1 mg IV.PUSH Q4H PRN PRN Reason: for CIWA 8-10 Multivitamins/Minerals (Theragran-M) 1 tab PO DAILY ADAMA Stop: 01/15/18 08:59 Last Admin: 01/10/18 09:33 Dose: 1 tab Ondansetron HCl (Zofran Inj) 4 mg IV.PUSH Q6H PRN PRN Reason: NAUSEA OR VOMITING Senna/Docusate Sodium (Maura-Colace) 1 tab PO BID [facility] Last Admin: 01/10/18 09:33 Dose: 1 tab Sennosides (Senokot) 17.2 mg PO Q12H PRN PRN Reason: Moderate Constipation Sodium Chloride (Ns Flush) 2 ml IV.FLUSH BID [facility] Last Admin: 01/10/18 09:34 Dose: 2 ml Sodium Chloride (Ns Flush) 2 ml IV.FLUSH PRN PRN PRN Reason: FLUSH AFTER USING IV ACCESS Thiamine HCl (Vitamin B1) 100 mg PO DAILY [facility] Last Admin: 01/10/18 09:33 Dose: 100 mg Allergies Allergy/AdvReac Type Severity Reaction Status Date / Time No Known Allergies Allergy Verified 12/01/17 11:35 Home Medications Medication Instructions Recorded Confirmed Type alendronate 70 mg PO QWEEK 10/14/17 01/09/18 History atorvastatin 80 mg PO DAILY 10/14/17 01/09/18 History furosemide 20 mg PO DAILY 10/14/17 01/09/18 History losartan 50 mg PO DAILY 10/14/17 01/09/18 History sertraline 100 mg PO DAILY 10/14/17 01/09/18 History Exam Vital signs: Vital Signs 01/09/18 22:27 01/10/18 01:21 01/10/18 01:35 Temperature 98.2 F 98.5 F 98.3 F Pulse Rate 83 76 75 Respiratory Rate 16 16 16 Blood Pressure 116/51 L 129/59 L 123/56 L Pulse Oximetry 98 96 95 01/10/18 02:00 01/10/18 04:00 01/10/18 04:55 Temperature 97.9 F 98.4 F 98.5 F Pulse Rate 76 72 76 Respiratory Rate 18 16 16 Blood Pressure 147/63 H 167/72 H 179/79 H Pulse Oximetry 94 L 96 01/10/18 05:21 01/10/18 05:37 01/10/18 07:45 Temperature 98.5 F 98.5 F Pulse Rate 77 74 81 Respiratory Rate 16 16 Blood Pressure 172/77 H 165/71 H Pulse Oximetry 01/10/18 08:00 01/10/18 11:37 01/10/18 12:00 Temperature 97.9 F 97.9 F Pulse Rate 83 82 79 Respiratory Rate 18 18 Blood Pressure 209/86 H 200/100 H Pulse Oximetry 94 L 96 01/10/18 14:46 Temperature Pulse Rate Respiratory Rate Blood Pressure 158/88 H Pulse Oximetry Intake & Output 01/09/18 01/10/18 01/10/18 18:59 06:59 18:59 Intake Total 50 / 50 35 / 35 Balance 50 / 50 35 / 35 Weight 53 kg Intake: IV 50 / 50 35 / 35 Protonix Inj 80 MG In NS Inj 35 35 / 35 ML @ 420 mls/hr IV.SIG BOLUS ONE Rx#:[id number] Ancef 2 GM Premix Inj 2 gm In 50 / 50 50 ml @ 100 mls/hr IV.SIG ONCE ONE Rx#:[id number] Oral 0 / 0 Intake (Blood Product) Amt 0 / 0 0 / 0 Rbc As-3 Leukoreduced Unit 0 / 0 0 / 0 [id number] Rbc As-3 Leukoreduced Unit 0 / 0 [id number] Other: # Voids 2 Date of Last Bowel Movement 01/08/18 Weight On Admission 53 kg - Constitutional no acute distress - Routine HEENT Exam Head: Present: normocephalic - Routine Respiratory Exam Present: CTA bilaterally. Absent: accessory muscle use - Routine Abdominal Exam Present: soft, normoactive bowel sounds. Absent: tenderness, distended, guarding, firm - Routine Skin Exam Present: dry, warm - Routine Neurological Exam Present: alert - Routine Psychiatric Exam Present: normal affect, cooperative Results - Labs CBC & Chem 7: 01/10/18 10:22 Labs: Laboratory Results - last 24 hr 01/09/18 01/09/18 01/09/18 22:40 22:40 22:50 CBC w Diff Safety Associate WBC 4.7 RBC 2.34 L Hgb 6.1 L* POC Hgb (Calc) Hct 19.2 L* POC Hct MCV 82.3 MCH 26.0 L MCHC 31.6 L RDW 20.0 H Plt Count 200 MPV 7.9 Prelim Diff (Auto) Neut % (Auto) 67.3 Lymph % (Auto) 22.6 [place] % (Auto) 6.1 Eos % (Auto) 2.8 Baso % (Auto) 1.2 Neut # (Auto) 3.1 Lymph # (Auto) 1.1 [place] # (Auto) 0.3 Eos # (Auto) 0.1 Baso # (Auto) 0.1 WBC Differential . Differential Comment Auto diff final PT INR APTT Fibrinogen POC Sodium POC Potassium POC Chloride POC BUN POC Creatinine POC Glucose Troponin I Urine Color Straw Urine Clarity Clear Urine pH 6.0 Ur Specific [place] 1.005 Urine Protein Negative Urine Glucose (UA) Negative Urine Ketones Negative Urine Occult Blood Negative Urine Nitrate Negative Urine Bilirubin Negative Urine Urobilinogen Less than 2 Ur Leukocyte Esterase Negative Urine RBC Less than 1 Urine WBC Less than 1 Ur Squamous Epith Cells <1 Hyaline Casts 1 Urine Mucus Few H Micro UA Comment Culture not ind Ur Microscopic Review Not Reportable Urine Culture Comments Culture not ind Urine Opiates Screen Neg Ur Barbiturates Screen Neg Ur Amphetamines Screen Neg U Benzodiazepines Scrn Neg Urine Cocaine Screen Neg U Cannabinoids Screen Neg Serum Alcohol Blood Type Blood Type Recheck Antibody Screen MTS Gel Crossmatch 01/09/18 01/09/18 01/09/18 22:50 22:50 22:50 CBC w Diff WBC RBC Hgb POC Hgb (Calc) 6.5 L* Hct POC Hct 19.0 L* MCV MCH MCHC RDW Plt Count MPV Prelim Diff (Auto) Neut % (Auto) Lymph % (Auto) [place] % (Auto) Eos % (Auto) Baso % (Auto) Neut # (Auto) Lymph # (Auto) [place] # (Auto) Eos # (Auto) Baso # (Auto) WBC Differential Differential Comment PT 10.0 INR 1.0 APTT 23.1 L Fibrinogen 255 POC Sodium 140 POC Potassium 3.2 L POC Chloride 106 POC BUN 8 POC Creatinine 0.8 POC Glucose 107 Troponin I Less than 0.02 L Urine Color Urine Clarity Urine pH Ur Specific [place] Urine Protein Urine Glucose (UA) Urine Ketones Urine Occult Blood Urine Nitrate Urine Bilirubin Urine Urobilinogen Ur Leukocyte Esterase Urine RBC Urine WBC Ur Squamous Epith Cells Hyaline Casts Urine Mucus Micro UA Comment Ur Microscopic Review Urine Culture Comments Urine Opiates Screen Ur Barbiturates Screen Ur Amphetamines Screen U Benzodiazepines Scrn Urine Cocaine Screen U Cannabinoids Screen Serum Alcohol 264 H Blood Type B Positive Blood Type Recheck Not needed Antibody Screen Negative MTS Gel Crossmatch 01/10/18 01/10/18 01/10/18 00:09 10:22 10:22 CBC w Diff WBC RBC Hgb 9.9 L D POC Hgb (Calc) Hct 29.5 L POC Hct MCV MCH MCHC RDW Plt Count MPV Prelim Diff (Auto) Neut % (Auto) Lymph % (Auto) [place] % (Auto) Eos % (Auto) Baso % (Auto) Neut # (Auto) Lymph # (Auto) [place] # (Auto) Eos # (Auto) Baso # (Auto) WBC Differential Differential Comment PT INR APTT Fibrinogen POC Sodium POC Potassium POC Chloride POC BUN POC Creatinine POC Glucose Troponin I Less than 0.02 L Urine Color Urine Clarity Urine pH Ur Specific [place] Urine Protein Urine Glucose (UA) Urine Ketones Urine Occult Blood Urine Nitrate Urine Bilirubin Urine Urobilinogen Ur Leukocyte Esterase Urine RBC Urine WBC Ur Squamous Epith Cells Hyaline Casts Urine Mucus Micro UA Comment Ur Microscopic Review Urine Culture Comments Urine Opiates Screen Ur Barbiturates Screen Ur Amphetamines Screen U Benzodiazepines Scrn Urine Cocaine Screen U Cannabinoids Screen Serum Alcohol Blood Type Blood Type Recheck Antibody Screen MTS Gel Crossmatch See Detail 01/10/18 01/10/18 12:40 12:44 CBC w Diff WBC RBC Hgb POC Hgb (Calc) Hct POC Hct MCV MCH MCHC RDW Plt Count MPV Prelim Diff (Auto) Neut % (Auto) Lymph % (Auto) [place] % (Auto) Eos % (Auto) Baso % (Auto) Neut # (Auto) Lymph # (Auto) [place] # (Auto) Eos # (Auto) Baso # (Auto) WBC Differential Differential Comment PT INR APTT Fibrinogen POC Sodium POC Potassium POC Chloride POC BUN POC Creatinine POC Glucose 103 Troponin I Less than 0.02 L Urine Color Urine Clarity Urine pH Ur Specific [place] Urine Protein Urine Glucose (UA) Urine Ketones Urine Occult Blood Urine Nitrate Urine Bilirubin Urine Urobilinogen Ur Leukocyte Esterase Urine RBC Urine WBC Ur Squamous Epith Cells Hyaline Casts Urine Mucus Micro UA Comment Ur Microscopic Review Urine Culture Comments Urine Opiates Screen Ur Barbiturates Screen Ur Amphetamines Screen U Benzodiazepines Scrn Urine Cocaine Screen U Cannabinoids Screen Serum Alcohol Blood Type Blood Type Recheck Antibody Screen MTS Gel Crossmatch - Imaging Impressions Chest X-Ray 01/09/18 22:47 CONCLUSION: No acute cardiopulmonary disease. Head CT 01/09/18 22:47 CONCLUSION: 1. Left periorbital soft tissue swelling. 2. No acute intracranial abnormality. . Pelvis X-Ray 01/09/18 22:47 CONCLUSION: 1. Prior trauma of the right hip. 2. No acute abnormality. Cervical Spine CT 01/09/18 22:48 CONCLUSION: 1. No fracture or dislocation. 2. Diffuse degenerative changes as detailed above. 3. Carotid artery atherosclerotic calcifications. Face CT 01/09/18 22:48 CONCLUSION: 1. Concern for anterior dislocation of the temporal mandibular joints bilaterally. No fracture. 2. Periorbital soft tissue swelling on the left. Abdomen/Pelvis CT 01/09/18 23:16 Bony Structures: A degenerative lumbar spine. Orthopedic hardware involving the right hip. CONCLUSION: 1. No acute abnormality. 2. Low ventral hernia and right inguinal hernia. 3. Cholelithiasis. Chest CT 01/09/18 23:16 CONCLUSION: 1. No acute intrathoracic abnormality. 2. Mild chronic interstitial fibrotic change. 3. Coronary artery atherosclerotic calcifications. Assessment and Plan (1) GI bleed Status: Acute Code(s): K92.2 - Gastrointestinal hemorrhage, unspecified - Plan This patient is an 82-year-old female with past medical history of hypertension , CHF, AV stenosis status post T AVR on 12/01/2017. Patient was brought to the emergency room after being found down by a family member with the smell of alcohol surrounding. Patient admits to drinking 2-3 bloody Barbara's daily along with 2-3 beers. Our service has been consulted to evaluate patient for GI bleeding. Upon arrival to emergency room, hemoglobin 6.1 hematocrit 19.2. After 2units packed RBCs, posttransfusion hemoglobin 9.9 hematocrit 29.5. INR 1.0, there has been no reported bleeding patient denies any bleeding. Of note, patient currently on Plavix and aspirin post T AVR on 12/01/2017. Patient currently on pantoprazole drip. Patient endorses 1 month onset of generalized weakness and shortness of breath. She denies any abdominal pain nausea or vomiting. States her bowel movements are regular 1-2 times daily brown with no noted bleeding. States last colonoscopy 4 years ago, polyps were found to be benign per her recollection. Patient denies ever having had an EGD in the past. Patient denies any known family history for gastrointestinal disorders. GI bleeding Patient currently on Plavix and aspirin post T AVR on 12/01/2017 Patient endorses 1 month onset of generalized weakness and shortness of breath, hemoglobin 6.1 and hematocrit 19.2 on arrival to ER. Posttransfusion hemoglobin 9.9 and hematocrit 29.5. No obvious bleeding at this time. Plan -Clear liquid diet -Monitor labs-serial hemoglobin and hematocrit ordered -Patient may require EGD and colonoscopy after cardiac clearance -Transfuse as needed -Continue pantoprazole drip -Notify GI for any active bleeding --Supportive care Further recommendations to follow This patient has been seen by myself and and this note is written on his behalf - Attending Attestation Dr. Alston
[2018-01-10 18:48] LABS: Hematocrit 31.6 % (35.0-46.0); Hemoglobin 10.4 gm/dL (11.6-15.3)
--- NOTE | 2018-01-10 20:10 | ECG ---
Date Performed: 01/09/2018 Time Performed: 22:37:59 PTAGE: 82 years EKG: Sinus rhythm MODERATE VOLTAGE CRITERIA FOR LVH, CONSIDER NORMAL VARIANT NONSPECIFIC T-WAVE ABNORMALITY BORDERLINE ECG PREVIOUS TRACING 12/02/17 Since the previous tracing, no significant change noted DOCTOR: José Miguel Cotto Interpretating Date/Time 01/10/2018 20:03:02
[2018-01-11 00:14] LABS: Hematocrit 30.1 % (35.0-46.0); Hemoglobin 10.2 gm/dL (11.6-15.3)
[2018-01-11] MEDS: Pantoprazole Inj 80 MG in Sodium Chlor 0.9% Inj 100 ML IV.CONT SCH ×2 (02:28→08:04)
[2018-01-11 04:48] LABS: Baso # (Auto) 0.1 th/mm3 (0.0-0.2); Eos # (Auto) 0.2 th/mm3 (0.0-0.4); Eos % (Auto) 3.8 % (0.0-4.0); Hematocrit 29.7 % (35.0-46.0); Hemoglobin 10.1 gm/dL (11.6-15.3); Lymph # (Auto) 0.8 th/mm3 (1.0-4.8); Mean Corpuscular HGB Conc 33.9 % (32.0-36.0); Mean Corpuscular Hemoglobin 28.3 pg (27.0-34.0); Mean Corpuscular Volume 83.4 fL (80.0-100.0); Mean Platelet Volume 7.4 fL (7.0-11.0); Mono # (Auto) 0.6 th/mm3 (0.0-0.9); Mono % (Auto) 10.6 % (0.0-8.0); Neut # (Auto) 3.6 th/mm3 (1.8-7.7); Neut % (Auto) 68.6 % (16.0-70.0); Platelet Count 179 th/mm3 (150-450); Red Blood Count 3.56 mil/mm3 (4.00-5.30); Red Cell Distribution Width 18.2 % (11.6-17.2); White Blood Count 5.3 th/mm3 (4.0-11.0)
[2018-01-11 05:18] LABS: Alanine Aminotransferase 16 U/L (10-53); Albumin 3.4 g/dL (3.4-5.0); Alkaline Phosphatase 67 U/L (45-117); Anion Gap 7 meq/L (5-15); Aspartate Aminotransferase 20 U/L (15-37); Blood Urea Nitrogen 10 mg/dL (7-18); Calcium 7.9 mg/dL (8.5-10.1); Carbon Dioxide 26.4 meq/L (21.0-32.0); Chloride 107 meq/L (98-107); Glomerular Filtration Rate Greater Than 89 mL/min (>89); Glucose,Random 94 mg/dL (74-106); Sodium 140 meq/L (136-145); Total Protein 6.6 g/dL (6.4-8.2)
[2018-01-11 05:22] LABS: Potassium 2.9 meq/L (3.5-5.1)
[2018-01-11] MEDS: Potassium Chlor 20 mEq Premix 20 MEQ/100 ML PIGGYBACK IV.SIG SCH ×2 (06:00→08:03)
[2018-01-11 08:22] VITALS: RESP 16
[2018-01-11] MEDS: Folic Acid 1 MG Tablet PO SCH (09:59)
[2018-01-11] MEDS: Multivitamin/Minerals Therapeutic Tablet PO SCH (09:59)
[2018-01-11] MEDS: Senna/Docusate Sodium 8.6/50 MG Tablet PO SCH (09:59)
[2018-01-11 12:00] LABS: Hematocrit 30.2 % (35.0-46.0); Hemoglobin 10.3 gm/dL (11.6-15.3)
--- NOTE | 2018-01-11 12:20 | P.PNGI ---
Subjective Interval history: Patient sitting up in bed reading a book Denies any abdominal pain nausea vomiting or bleeding Declines any endoscopic procedures and states she will follow-up as outpatient with primary care Physical Exam Vital signs: Vital Signs 01/10/18 14:46 01/10/18 16:00 01/10/18 19:43 Temperature 97.8 F Pulse Rate 79 Respiratory Rate 18 Blood Pressure 158/88 H 173/75 H Pulse Oximetry 93 L 98 01/10/18 20:00 01/10/18 23:28 01/11/18 00:00 Temperature 98.3 F 98 F Pulse Rate 78 73 69 Respiratory Rate 15 14 Blood Pressure 150/70 H 162/93 H Pulse Oximetry 96 97 01/11/18 04:00 01/11/18 08:00 Temperature 97.8 F 98.3 F Pulse Rate 74 65 Respiratory Rate 18 16 Blood Pressure 158/78 H 155/80 H Pulse Oximetry 95 98 Intake & Output 01/10/18 01/11/18 01/11/18 18:59 06:59 18:59 Intake Total 135 / 135 115 / 115 157 / 157 Balance 135 / 135 115 / 115 157 / 157 Weight 51.6 kg Intake: IV 135 / 135 115 / 115 157 / 157 Protonix Inj 80 MG In NS Inj 100 / 100 100 / 100 57 / 57 100 ML @ 10 mls/hr IV.CONT Q10H ADAMA Rx#:[id number] Protonix Inj 80 MG In NS Inj 35 35 / 35 ML @ 420 mls/hr IV.SIG BOLUS ONE Rx#:[id number] KCl 20 mEq Premix Inj 20 meq In 100 / 100 100 ml @ 50 mls/hr IV.SIG Q2H ADAMA Rx#:[id number] NS Inj 250 ML @ 15 mls/hr IV. 15 / 15 SIG ONCE ADAMA Rx#:[id number] Oral 0 / 0 Intake (Blood Product) Amt 0 / 0 Rbc As-3 Leukoreduced Unit 0 / 0 [id number] Other: # Voids 3 2 Date of Last Bowel Movement 01/08/18 01/08/18 # Bowel Movements 0 - Constitutional no acute distress - Routine HEENT Exam Head: Present: normocephalic - Routine Respiratory Exam Present: CTA bilaterally - Routine Abdominal Exam Present: soft, normoactive bowel sounds. Absent: tenderness, distended, guarding, firm - Routine Skin Exam Present: dry, warm - Routine Neurological Exam Present: alert - Routine Psychiatric Exam Present: normal affect, cooperative Results - Labs CBC & Chem 7: 01/11/18 11:27 01/11/18 04:20 Laboratory Results - last 24 hr 01/10/18 01/10/18 01/10/18 12:40 12:44 18:09 WBC RBC Hgb 10.4 L Hct 31.6 L MCV MCH MCHC RDW Plt Count MPV Neut % (Auto) Lymph % (Auto) [place] % (Auto) Eos % (Auto) Baso % (Auto) Neut # (Auto) Lymph # (Auto) [place] # (Auto) Eos # (Auto) Baso # (Auto) WBC Differential Differential Comment Sodium Potassium Chloride Carbon Dioxide Anion Gap BUN Creatinine Estimated GFR POC Glucose 103 Random Glucose Calcium Magnesium Total Bilirubin AST ALT Alkaline Phosphatase Troponin I Less than 0.02 L Total Protein Albumin 01/10/18 01/10/18 01/11/18 19:31 23:55 04:20 WBC 5.3 RBC 3.56 L Hgb 10.2 L 10.1 L Hct 30.1 L 29.7 L MCV 83.4 MCH 28.3 MCHC 33.9 RDW 18.2 H Plt Count 179 MPV 7.4 Neut % (Auto) 68.6 Lymph % (Auto) 16.0 [place] % (Auto) 10.6 H Eos % (Auto) 3.8 Baso % (Auto) 1.0 Neut # (Auto) 3.6 Lymph # (Auto) 0.8 L [place] # (Auto) 0.6 Eos # (Auto) 0.2 Baso # (Auto) 0.1 WBC Differential . Differential Comment Auto diff final Sodium Potassium Chloride Carbon Dioxide Anion Gap BUN Creatinine Estimated GFR POC Glucose 197 H Random Glucose Calcium Magnesium Total Bilirubin AST ALT Alkaline Phosphatase Troponin I Total Protein Albumin 01/11/18 01/11/18 01/11/18 04:20 04:20 07:39 WBC RBC Hgb Hct MCV MCH MCHC RDW Plt Count MPV Neut % (Auto) Lymph % (Auto) [place] % (Auto) Eos % (Auto) Baso % (Auto) Neut # (Auto) Lymph # (Auto) [place] # (Auto) Eos # (Auto) Baso # (Auto) WBC Differential Differential Comment Sodium 140 Potassium 2.9 L* Chloride 107 Carbon Dioxide 26.4 Anion Gap 7 BUN 10 Creatinine 0.45 L Estimated GFR Greater than 89 POC Glucose 109 Random Glucose 94 Calcium 7.9 L Magnesium 1.8 Total Bilirubin 0.5 AST 20 ALT 16 Alkaline Phosphatase 67 Troponin I Total Protein 6.6 Albumin 3.4 01/11/18 01/11/18 11:27 11:39 WBC RBC Hgb 10.3 L Hct 30.2 L MCV MCH MCHC RDW Plt Count MPV Neut % (Auto) Lymph % (Auto) [place] % (Auto) Eos % (Auto) Baso % (Auto) Neut # (Auto) Lymph # (Auto) [place] # (Auto) Eos # (Auto) Baso # (Auto) WBC Differential Differential Comment Sodium Potassium Chloride Carbon Dioxide Anion Gap BUN Creatinine Estimated GFR POC Glucose 156 H Random Glucose Calcium Magnesium Total Bilirubin AST ALT Alkaline Phosphatase Troponin I Total Protein Albumin Assessment and Plan (1) GI bleed Status: Acute Code(s): K92.2 - Gastrointestinal hemorrhage, unspecified - Plan This patient is an 82-year-old female with past medical history of hypertension , CHF, AV stenosis status post T AVR on 12/01/2017. Patient was brought to the emergency room after being found down by a family member with the smell of alcohol surrounding. Patient admits to drinking 2-3 bloody Barbara's daily along with 2-3 beers. Our service has been consulted to evaluate patient for GI bleeding. Upon arrival to emergency room, hemoglobin 6.1 hematocrit 19.2. After 2units packed RBCs, posttransfusion hemoglobin 9.9 hematocrit 29.5. INR 1.0, there has been no reported bleeding patient denies any bleeding. Of note, patient currently on Plavix and aspirin post T AVR on 12/01/2017. Patient currently on pantoprazole drip. Patient endorses 1 month onset of generalized weakness and shortness of breath. She denies any abdominal pain nausea or vomiting. States her bowel movements are regular 1-2 times daily brown with no noted bleeding. States last colonoscopy 4 years ago, polyps were found to be benign per her recollection. Patient denies ever having had an EGD in the past. Patient denies any known family history for gastrointestinal disorders. GI bleeding Patient currently on Plavix and aspirin post T AVR on 12/01/2017 Patient endorses 1 month onset of generalized weakness and shortness of breath, hemoglobin 6.1 and hematocrit 19.2 on arrival to ER. Posttransfusion hemoglobin 9.9 and hematocrit 29.5. No obvious bleeding at this time. 01/11/2018 GI bleeding Patient currently on Plavix and aspirin Patient denies any weakness or shortness of breath Patient declining any invasive endoscopic procedures at this time and states she will follow-up with primary care Patient denies bleeding, no reported bleeding Hemoglobin 10.3 hematocrit 30.2 Plan Diet as tolerated Patient instructed to advise PCP of bleeding or the nearest emergency room. Patient agrees to follow-up with GI post discharge 1 week Continue PPI Supportive care Stable from GI standpoint for discharge as per attending Dr. Jacob This patient has been seen by myself and and this note is written on his behalf - Attending Attestation yuval (1) GI bleed Qualifiers: GI bleed type/associated pathology: unspecified gastrointestinal hemorrhage type Qualified Code(s): K92.2 - Gastrointestinal hemorrhage, unspecified
--- NOTE | 2018-01-11 13:23 | P.DS ---
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 Pt has no recollection of events, but admits to drinking tonight. +facial trauma w/ ecchymosis/edema. On ASA/Plavix. On arrival, BP 116/51, HR 83, O2 sat 98% on RA, Afebrile. Hemoglobin 6.1, previously 9.9 on 12/02/2017. Hemoccult +. INR 1.0. Chemistry essentially unremarkable. Troponin negative. UA negative for UTI. Urine Drug Screen negative. Alcohol 264. CXR with no acute findings. T Head left periorbital soft tissue swelling no acute intracranial abnormalities. Pelvis X-ray prior trauma right hip no acute findings. CT C-spine no acute fracture or dislocation. CT Face possible anterior dislocation temporomandibular joints no fracture. CT Abdomen/Pelvis no acute findings. CT Chest no acute findings. 2u pRBC ordered, pending transfusion. Patient update on day of discharge: Patient is currently doing well. Her hemoglobin has been stable at around 10. She denies any further GI bleed. She is ambulating well. She does not want to undergo any GI procedures. She also does not want to go to any rehab. She wants to go home. She has good support at home. 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 On ASA/Plavix. On arrival, BP 116/51, HR 83, O2 sat 98% on RA, Afebrile. Hemoglobin 6.1, previously 9.9 on 12/02/2017. Hemoccult +. INR 1.0. Patient was given 2 units of PRBCs. Her hemoglobin improved to around 10. GI evaluated patient and recommended EGD/ colonoscopy. GI requested cardiology clearance. On the day of discharge, I had a long conversation with patient regarding further GI workup. She reported that she is not having any further GI bleed and does not want to undergo any GI workup. I discussed with GI. Since patient's hemoglobin is a stable, patient is hemodynamically stable and tolerating diet as well as ambulating well, there is no reason to keep her in the hospital any further. Will discharge patient home with outpatient follow-up. - Time Spent with Patient Total time spent providing and/or coordinating discharge services: Less than 30 minutes - Quality: VTE Deep Vein Thrombosis/Pulmonary Embolism Present on Admission: No Exam Vital signs: Vital Signs 01/10/18 14:46 01/10/18 16:00 01/10/18 19:43 Temperature 97.8 F Pulse Rate 79 Respiratory Rate 18 Blood Pressure 158/88 H 173/75 H Pulse Oximetry 93 L 98 01/10/18 20:00 01/10/18 23:28 01/11/18 00:00 Temperature 98.3 F 98 F Pulse Rate 78 73 69 Respiratory Rate 15 14 Blood Pressure 150/70 H 162/93 H Pulse Oximetry 96 97 01/11/18 04:00 01/11/18 08:00 01/11/18 09:00 Temperature 97.8 F 98.3 F Pulse Rate 74 65 67 Respiratory Rate 18 16 Blood Pressure 158/78 H 155/80 H Pulse Oximetry 95 98 Intake & Output 01/10/18 01/11/18 01/11/18 18:59 06:59 18:59 Intake Total 135 / 135 115 / 115 200 / 200 Balance 135 / 135 115 / 115 200 / 200 Weight 51.6 kg Intake: IV 135 / 135 115 / 115 200 / 200 Protonix Inj 80 MG In NS Inj 100 / 100 100 / 100 100 / 100 100 ML @ 10 mls/hr IV.CONT Q10H ADAMA Rx#:[id number] Protonix Inj 80 MG In NS Inj 35 35 / 35 ML @ 420 mls/hr IV.SIG BOLUS ONE Rx#:[id number] KCl 20 mEq Premix Inj 20 meq In 100 / 100 100 ml @ 50 mls/hr IV.SIG Q2H ADAMA Rx#:[id number] NS Inj 250 ML @ 15 mls/hr IV. 15 15 SIG ONCE ADAMA Rx#:[id number] Oral 0 / 0 Intake (Blood Product) Amt 0 / 0 Rbc As-3 Leukoreduced Unit 0 / 0 [id number] Other: # Voids 3 2 Date of Last Bowel Movement 01/08/18 01/08/18 01/11/18 # Bowel Movements 0 Narrative: GENERAL: Alert, oriented x 3, NAD. SKIN: Warm and dry. HEAD: Normocephalic. EYES: No scleral icterus. Ecchymosis noted around left eye. NECK: Supple, trachea midline. No JVD or lymphadenopathy. CARDIOVASCULAR: Regular rate and rhythm without murmurs, gallops, or rubs. RESPIRATORY: Breath sounds equal bilaterally. No accessory muscle use. GASTROINTESTINAL: Abdomen soft, non-tender, nondistended. MUSCULOSKELETAL: No cyanosis, or edema. BACK: Nontender without obvious deformity. No CVA tenderness. Results Procedures completed during hospitalization: 2 units of PRBCs administration. Labs on day of discharge: Labs from last 24 hours 01/11/18 01/11/18 01/11/18 11:39 11:27 07:39 WBC RBC Hgb 10.3 L Hct 30.2 L MCV MCH MCHC RDW Plt Count MPV Neut % (Auto) Lymph % (Auto) [place] % (Auto) Eos % (Auto) Baso % (Auto) Neut # (Auto) Lymph # (Auto) [place] # (Auto) Eos # (Auto) Baso # (Auto) WBC Differential Differential Comment Sodium Potassium Chloride Carbon Dioxide Anion Gap BUN Creatinine Estimated GFR POC Glucose 156 H 109 Random Glucose Calcium Magnesium Total Bilirubin AST ALT Alkaline Phosphatase Troponin I Total Protein Albumin 01/11/18 01/11/18 01/11/18 04:20 04:20 04:20 WBC 5.3 RBC 3.56 L Hgb 10.1 L Hct 29.7 L MCV 83.4 MCH 28.3 MCHC 33.9 RDW 18.2 H Plt Count 179 MPV 7.4 Neut % (Auto) 68.6 Lymph % (Auto) 16.0 [place]ancock % (Auto) 10.6 H Eos % (Auto) 3.8 Baso % (Auto) 1.0 Neut # (Auto) 3.6 Lymph # (Auto) 0.8 L [place] # (Auto) 0.6 Eos # (Auto) 0.2 Baso # (Auto) 0.1 WBC Differential . Differential Comment Auto diff final Sodium 140 Potassium 2.9 L* Chloride 107 Carbon Dioxide 26.4 Anion Gap 7 BUN 10 Creatinine 0.45 L Estimated GFR Greater than 89 POC Glucose Random Glucose 94 Calcium 7.9 L Magnesium 1.8 Total Bilirubin 0.5 AST 20 ALT 16 Alkaline Phosphatase 67 Troponin I Total Protein 6.6 Albumin 3.4 01/10/18 01/10/18 01/10/18 23:55 19:31 18:09 WBC RBC Hgb 10.2 L 10.4 L Hct 30.1 L 31.6 L MCV MCH MCHC RDW Plt Count MPV Neut % (Auto) Lymph % (Auto) [place] % (Auto) Eos % (Auto) Baso % (Auto) Neut # (Auto) Lymph # (Auto) H[place] # (Auto) Eos # (Auto) Baso # (Auto) WBC Differential Differential Comment Sodium Potassium Chloride Carbon Dioxide Anion Gap BUN Creatinine Estimated GFR POC Glucose 197 H Random Glucose Calcium Magnesium Total Bilirubin AST ALT Alkaline Phosphatase Troponin I Total Protein Albumin 01/10/18 12:40 WBC RBC Hgb Hct MCV MCH MCHC RDW Plt Count MPV Neut % (Auto) Lymph % (Auto) [place] % (Auto) Eos % (Auto) Baso % (Auto) Neut # (Auto) Lymph # (Auto) [place] # (Auto) Eos # (Auto) Baso # (Auto) WBC Differential Differential Comment Sodium Potassium Chloride Carbon Dioxide Anion Gap BUN Creatinine Estimated GFR POC Glucose Random Glucose Calcium Magnesium Total Bilirubin AST ALT Alkaline Phosphatase Troponin I Less than 0.02 L Total Protein Albumin - Impressions ITS Impressions Chest X-Ray 01/09/18 22:47 CONCLUSION: No acute cardiopulmonary disease. Head CT 01/09/18 22:47 CONCLUSION: 1. Left periorbital soft tissue swelling. 2. No acute intracranial abnormality. . Pelvis X-Ray 01/09/18 22:47 CONCLUSION: 1. Prior trauma of the right hip. 2. No acute abnormality. Cervical Spine CT 01/09/18 22:48 CONCLUSION: 1. No fracture or dislocation. 2. Diffuse degenerative changes as detailed above. 3. Carotid artery atherosclerotic calcifications. Face CT 01/09/18 22:48 CONCLUSION: 1. Concern for anterior dislocation of the temporal mandibular joints bilaterally. No fracture. 2. Periorbital soft tissue swelling on the left. Abdomen/Pelvis CT 01/09/18 23:16 Bony Structures: A degenerative lumbar spine. Orthopedic hardware involving the right hip. CONCLUSION: 1. No acute abnormality. 2. Low ventral hernia and right inguinal hernia. 3. Cholelithiasis. Chest CT 01/09/18 23:16 CONCLUSION: 1. No acute intrathoracic abnormality. 2. Mild chronic interstitial fibrotic change. 3. Coronary artery atherosclerotic calcifications. Discharge Plan - Discharge Disposition Patient Disposition: Discharge Home - Discharge Condition Condition: Good - Discharge Order Discharge Orders: Discharge Order (Routine); Ordered 01/11/18 Ordered By: Phuong Jacob - Discharge Details Anticipated Discharge Date: 01/11/18 Discharge Comment: Patient refuses to do any procedure and wants to go Home. - Physicians Team Primary Care Provider: UNKNOWN, Attending Provider: Phuong Jacob Other Providers: Megan,Shitala ; Shawn Alston MD
[2018-01-11 13:47] VITALS: BP 188/73; PULSE 70; TEMP 98.4; O2SAT 96
== END 2018-01-11 13:48 | disposition home or self-care (01) ==
LOC: NEPC 22:25 → NEDA 01-10 00:42 → N04 01-10 02:07
PROVIDERS: ADMIT Hospitalist; ATTEND Hospitalist